=== PATIENT | male | born 1950 | race Caucasian/White ===

== ENCOUNTER → 2016-07-20 | Outpatient (CLI) | payer OTHER ==
[~2016-07-20] MED LIST: ALBU0.08 INH; ALBU0.633 NEB; ALBUAER2 INH; BUPR-79 PO; FLM4 PO; MOME200A INH; ROPI0.5T15 PO; SERT-234 PO; SERT100T PO; TAMS0.4C38 PO; UMEC1AER INH; VNTHFA/IN INH
--- NOTE | 2016-07-20 15:28 | DIAGNOSTIC IMAGING REPORT ---
CHEST 2 VIEWS ROUTINE CLINICAL HISTORY: ASTHMA WITH ACUTE EXACERBATION, DYSPNEA WITH EXACERBATION COMPARISON STUDY: 04/20/2013 FINDINGS: The cardiac and mediastinal contours are normal. There is no evidence of focal pulmonary consolidation. There is no evidence of failure. No pleural effusions are visualized.[ IMPRESSION: No active disease in the chest. Electronically signed by: Griffin Jara M.D. 07/20/2016 3:27 PM Dictated Date/Time: 07/20/2016 3:27 PM
== END | disposition home or self-care (01) ==
LOC: C.LABPVFM 15:03
PROVIDERS: ATTEND Nurse Practitioner
DX: J45.901 Unspecified asthma with (acute) exacerbation (principal); R06.09 Other forms of dyspnea

== ENCOUNTER → 2016-08-20 | Outpatient (CLI) | payer OTHER ==
[~2016-08-20] VITALS: Ht 170.2 cm; Wt 80.2 kg
[2016-08-20 14:05] VITALS: BP 131/87; PULSE 71; Ht 170.2 cm; Wt 80.2 kg
[2016-08-20 14:06] VITALS: BP 134/45; PULSE 83
== END | disposition home or self-care (01) ==
LOC: C.NEUR 13:33
PROVIDERS: ATTEND Internal Medicine Pulmonary Disease
DX: G47.33 Obstructive sleep apnea (adult) (pediatric) (principal); G25.81 Restless legs syndrome

== ENCOUNTER → 2016-09-12 | Outpatient (CLI) | payer OTHER ==
[2016-09-12 18:16] LABS: ALB/GLOB RATIO 0.9 (0.9-2); ALKALINE PHOSPHATASE 107 U/L (45-117); ALT/SGPT 21 U/L (12-78); AST/SGOT 15 U/L (15-37); BLOOD UREA NITROGEN 15 mg/dl (7-18); BUN/CREATININE RATIO 12.4 (10-20); CALCIUM 9.1 mg/dl (8.5-10.1); CARBON DIOXIDE 28 mmol/L (21-32); CHLORIDE 107 mmol/L (98-107); CHOLESTEROL 193 mg/dl (0-200); CHOLESTEROL/HDL RATIO 2.9; GLUCOSE 92 mg/dl (70-99); HDL CHOLESTEROL 66 mg/dl; LDL CHOLESTEROL CALCULATED 107 mg/dl; POTASSIUM 4.3 mmol/L (3.5-5.1); SODIUM 142 mmol/L (136-145); TRIGLYCERIDES 101 mg/dl (0-150); VERY LOW DENSITY LIPOPROT CALC 20 mg/dl
== END | disposition home or self-care (01) ==
LOC: C.LABPVFM 11:21
PROVIDERS: ATTEND Family Medicine
DX: N40.1 Benign prostatic hyperplasia with lower urinary tract symptoms (principal); N13.8 Other obstructive and reflux uropathy; J45.909 Unspecified asthma, uncomplicated; F32.9 Major depressive disorder, single episode, unspecified; Z13.220 Encounter for screening for lipoid disorders; G25.81 Restless legs syndrome; T14.8 Other injury of unspecified body region; W57.XXXA Bitten or stung by nonvenomous insect and other nonvenomous arthropods, initial encounter

== ENCOUNTER → 2016-09-12 | Outpatient (CLI) | payer OTHER ==
[2016-09-12 21:12] LABS: LYME DISEASE AB IGG NEG (NEG); LYME DISEASE AB IGM NEG (NEG)
== END | disposition home or self-care (01) ==
LOC: C.LABPVFM 16:16
PROVIDERS: ATTEND Family Medicine
DX: T14.8 Other injury of unspecified body region (principal); W57.XXXA Bitten or stung by nonvenomous insect and other nonvenomous arthropods, initial encounter

== ENCOUNTER → 2016-11-22 | Outpatient (CLI) | payer OTHER ==
--- NOTE | 2016-11-22 14:51 | EXERCISE STRESS TEST ---
TREADMILL EXERCISE STRESS REPORT REFERRING PROVIDER: FELICE Mistry. INTERPRETING PHYSICIAN: Júnior Crain M.D. PROCEDURE: Treadmill exercise stress test. CLINICAL INDICATIONS: Exertional fatigue and dyspnea. PROTOCOL: The patient exercised a total of 5 minutes and 1 second on the treadmill utilizing the standard Titi protocol. The resting heart rate was 69 beats per minute. Maximum heart rate following exercise was 146 beats per minute. This was 95% of maximum predicted heart rate. The resting blood pressure was 145/88 mmHg. The maximum blood pressure following exercise was 196/89 mmHg. The maximum workload attained was 7.00 METS. Exercise terminated because of dyspnea and leg fatigue. No complaints of chest pain during or following exercise. RESTING ELECTROCARDIOGRAM: Normal sinus rhythm, right side conduction delay, normal ST segments and T-waves. POST-EXERCISE ELECTROCARDIOGRAM: Sinus tachycardia, 0.5-[address] depressions in the inferior lateral leads. ARRHYTHMIAS: Rare premature ventricular beats in the recovery phase. CONCLUSIONS: 1. Maximum exercise stress test negative for chest pain. 2. Normal ECG response to exercise. 3. Hypertensive blood pressure response to exercise. 4. No significant exercise induced arrhythmias.
== END | disposition home or self-care (01) ==
LOC: C.CPL 08:32
PROVIDERS: ATTEND Nurse Practitioner
DX: R06.89 Other abnormalities of breathing (principal); I10 Essential (primary) hypertension

== ENCOUNTER → 2017-02-18 | Outpatient (CLI) | payer OTHER ==
[~2017-02-18] VITALS: Ht 167.6 cm; Wt 77.4 kg
[2017-02-18 13:08] VITALS: BP 135/81; PULSE 77; Ht 167.6 cm; Wt 77.4 kg
== END | disposition home or self-care (01) ==
LOC: C.NEUR 12:20
PROVIDERS: ATTEND Physician Assistant
DX: G47.33 Obstructive sleep apnea (adult) (pediatric) (principal); G25.81 Restless legs syndrome; R06.09 Other forms of dyspnea; F41.9 Anxiety disorder, unspecified; Z87.891 Personal history of nicotine dependence

== ENCOUNTER → 2017-03-13 | Day surgery (SDC) | payer OTHER ==
[2017-02-26 13:05] VITALS: BMI 26.0
[~2017-03-13] VITALS: Ht 170.2 cm; Wt 77.3 kg
[~2017-03-13] MED LIST changes: -ALBU0.08 INH; -ALBUAER2 INH; +LIDOCAINE HCL 2% 2 ML VIAL (20MG/ML) ONE; +PROPOFOL IV EMULSION 10 MG/ML 20 ML VIAL IV ONE; -SERT100T PO; +SODIUM CHLORIDE 0.9% 500ML 500 ML IV ONE; -TAMS0.4C38 PO; -UMEC1AER INH
[2017-03-13 13:41] VITALS: Ht 170.2 cm; Wt 77.3 kg
--- NOTE | 2017-03-13 14:13 | Endo History and Physical ---
History & Physical Date of Service: Mar 13, 2017. Chief Complaint: 5yr F/UP from colon polyps Referring Physician: Dr. Kilgore History of Present Illness 66 yo CM who presents for colonoscopy secondary to colon polyps. Past Surgical History Hx Cardiac Surgery: No Hx Internal Defibrillator: No Hx Pacemaker: No Hx Abdominal Surgery: Yes (ANTHONY) Hx of Implantable Prosthesis: No Hx Post-Op Nausea and Vomiting: No Hx Cancer Surgery: No Hx Thoracic Surgery: No Hx Orthopedic: No Hx Urinary Tract Surgery: No Family History Colon CA Social History Smoking Status: Former Smoker Hx Substance Use: No Hx Alcohol Use: No Allergies Coded Allergies: No Known Allergies (Unverified , 03/13/17) Current Medications Reported Home Medications Medications Dose Route/Sig Max Daily Dose Days Date Category Dulera 200/5 Mcg (Mometasone Furoate-Formoterol) 1 Aer Aer 1 Aer INH BID 02/26/17 Reported Albuterol Sulfate 0.63 Mg/3 Ml Neb 1 Vial NEB QID PRN 25 02/26/17 Reported Ventolin Hfa (Albuterol) 200 Puffs/41386 Mcg Aers 2-4 Puffs INH Q6H PRN 02/26/17 Reported Wellbutrin Sr (Bupropion HCl) 150 Mg Ertab 150 Mg PO QPM 02/26/17 Reported Requip (Ropinirole HCl) 0.5 Mg Tab 0.5 Mg PO HS 02/26/17 Reported Tamsulosin HCl 0.4 Mg Cap 1 Cap PO QAM 02/26/17 Reported Zoloft (Sertraline HCl) 100 Mg Tab 100 Mg PO QAM 02/26/17 Reported Vital Signs Weight (Kilograms): 77.27 Height (Feet): 5 Height (Inches): 7 Date Time Temp Pulse Resp B/P (MAP) Pulse Ox O2 Delivery O2 Flow Rate FiO2 03/13/17 13:48 36.6 76 20 161/94 (116) 95 Room Air Physical Exam General Appearance: WD/WN, no apparent distress Respiratory/Chest: Auscultation: breath sounds normal Cardiovascular: Heart Auscultation: RRR Abdomen: Bowel Sounds: normal Inspection & Palpation: soft, non-distended, no tenderness, guarding & rebound Assessment and Plan Assessment: 66 yo CM who presents for colonoscopy secondary to colon polyps. Plan: Proceed with colonoscopy.
--- NOTE | 2017-03-13 15:11 | GI REPORT ---
Procedure Date: 03/13/2017 2:22 PM Procedure: Colonoscopy Indications: High risk colon cancer surveillance: Personal history of colonic polyps Medicines: Monitored Anesthesia Care Complications: No immediate complications. Estimated Blood Loss: Estimated blood loss: none. Procedure: Pre-Anesthesia Assessment: - Prior to the procedure, a History and Physical was performed, and patient medications and allergies were reviewed. The patient's tolerance of previous anesthesia was also reviewed. The risks and benefits of the procedure and the sedation options and risks were discussed with the patient. All questions were answered, and informed consent was obtained. Prior Anticoagulants: The patient has taken no previous anticoagulant or antiplatelet agents. ASA Grade Assessment: II - A patient with mild systemic disease. After reviewing the risks and benefits, the patient was deemed in satisfactory condition to undergo the procedure. After I obtained informed consent, the scope was passed under direct vision. Throughout the procedure, the patient's blood pressure, pulse, and oxygen saturations were monitored continuously. The scope was introduced through the anus and advanced to the terminal ileum. The colonoscopy was performed without difficulty. The patient tolerated the procedure well. The quality of the bowel preparation was good. The terminal ileum, ileocecal valve, appendiceal orifice, and rectum were photographed. Findings: Three sessile polyps were found in the rectum, in the transverse colon and in the ascending colon. The polyps were 3 to 6 mm in size. These polyps were removed with a hot snare. Resection and retrieval were complete. Multiple small-mouthed diverticula were found in the sigmoid colon. Non-bleeding internal hemorrhoids were found during retroflexion. The hemorrhoids were small. Impression: - Three 3 to 6 mm polyps in the rectum, in the transverse colon and in the ascending colon, removed with a hot snare. Resected and retrieved. - Diverticulosis in the sigmoid colon. - Non-bleeding internal hemorrhoids. Recommendation: - Resume previous diet. - Continue present medications. - Repeat colonoscopy for surveillance based on pathology results. - Return to primary care physician as previously scheduled. Austin Smiley DO 03/13/2017 3:10:53 PM This report has been signed electronically. Note Initiated On: 03/13/2017 2:22 PM I attest to the content of the Intraoperative Record and orders documented therein, exceptions below
--- NOTE | 2017-03-13 15:12 | Discharge Instructions ---
Endoscopy Patient Instructions Date / Procedure(s) Performed Mar 13, 2017. Colonoscopy Allergy Information Coded Allergies: No Known Allergies (Unverified , 03/13/17) Discharge Date / Findings Mar 13, 2017. Colon polyps Diverticulosis Internal hemorrhoids Medication Instructions OK to resume all medications today as prescribed Reported Home Medications Medications Dose Route/Sig Max Daily Dose Days Date Category Dulera 200/5 Mcg (Mometasone Furoate-Formoterol) 1 Aer Aer 1 Aer INH BID 02/26/17 Reported Albuterol Sulfate 0.63 Mg/3 Ml Neb 1 Vial NEB QID PRN 25 02/26/17 Reported Ventolin Hfa (Albuterol) 200 Puffs/70361 Mcg Aers 2-4 Puffs INH Q6H PRN 02/26/17 Reported Wellbutrin Sr (Bupropion HCl) 150 Mg Ertab 150 Mg PO QPM 02/26/17 Reported Requip (Ropinirole HCl) 0.5 Mg Tab 0.5 Mg PO HS 02/26/17 Reported Tamsulosin HCl 0.4 Mg Cap 1 Cap PO QAM 02/26/17 Reported Zoloft (Sertraline HCl) 100 Mg Tab 100 Mg PO QAM 02/26/17 Reported Provider Instructions Activity Restrictions - No exercising or heavy lifting for 24 hours. - Do not drink alcohol the day of the procedure. - Do not drive a car or operate machinery until the day after the procedure. - Do not make any important decisions or sign important papers in 24 hours after the procedure. Following Day: - Return to full activity which may include returning to work/school. Diet Start your diet with liquids and light foods (jello, soup, juice, toast). Then eat your usual diet if not nauseated. Treatment For Common After Affects For mild abdominal pain, bloating, or excessive gas: - Rest - Eat lightly - Lie on right side Follow-Up Information Follow-up with Dr. Kilgore as scheduled Anesthesia Information What You Should Know You have had a procedure that required some medicine to reduce anxiety and discomfort. This treatment is called moderate sedation. After receiving the treatment, you may be sleepy, but you will be able to breathe on your own. The effects of the treatment may last for several hours. Follow these instructions along with Activity/Diet recommendations noted above: * Do NOT do anything where dizziness or clumsiness would be dangerous. * Rest quietly at home today, then you can be up and about tomorrow. * Have a responsible person stay with you the rest of today. * You may have had an I.V. today. If so, you may take the dressing off later today. Recommendations Call your doctor if: * Trouble breathing * Continuous vomiting for more than 24 hours * Temperature above 101 degrees * Severe abdominal pain or bloating * Pain not relieved by pain medicine ordered * There is increased drainage or redness from any incision * A large amount of rectal bleeding greater than 2-3 tablespoons. (If you had a polyp/s removed or have hemorrhoids, a small amount of blood - from the rectum is to be expected.) * You have any unanswered questions or concerns. IN THE EVENT OF A SERIOUS EMERGENCY, GO TO THE NEAREST EMERGENCY ROOM Your discharge instructions were prepared by provider Austin Smiley. Patient Instructions Signature Page Rl Burdener Patient (or Guardian) Signature/Date: I have read and understand the instructions given to me by my caregivers. Caregiver/RN/Doctor Signature/Date: The above-named patient and/or guardian has received patient instructions on this date. + Original Patient Signature Page (only) stays with chart. Please make copy for patient.
--- NOTE | 2017-03-13 15:37 | Anesthesiology Progress Note ---
Anesthesia Post Op Note Date & Time Mar 13, 2017 at 15:36 Vital Signs Pain Intensity: 0 Vital Signs Past 12 Hours Date Time Temp Pulse Resp B/P (MAP) Pulse Ox O2 Delivery O2 Flow Rate FiO2 03/13/17 15:25 71 20 112/69 (83) 93 Room Air 03/13/17 15:10 96 20 97/66 (76) 93 Room Air 03/13/17 13:48 36.6 76 20 161/94 (116) 95 Room Air Notes Mental Status: alert / awake / arousable, participated in evaluation Pt Amnestic to Procedure: Yes Nausea / Vomiting: adequately controlled Pain: adequately controlled Airway Patency, RR, SpO2: stable & adequate BP & HR: stable & adequate Hydration State: stable & adequate Anesthetic Complications: no major complications apparent
[2017-03-13 15:40] VITALS: BP 121/71; PULSE 64; O2SAT 94
== END | disposition home or self-care (01) ==
LOC: C.GI 13:11
PROVIDERS: ATTEND Internal Medicine
DX: Z12.11 Encounter for screening for malignant neoplasm of colon (principal); D12.8 Benign neoplasm of rectum; D12.3 Benign neoplasm of transverse colon; D12.2 Benign neoplasm of ascending colon; Z86.010 Personal history of colon polyps; Z87.891 Personal history of nicotine dependence; K57.30 Diverticulosis of large intestine without perforation or abscess without bleeding; K64.8 Other hemorrhoids

== ENCOUNTER → 2017-05-06 | Outpatient (CLI) | payer OTHER ==
[~2017-05-06] MED LIST changes: -LIDOCAINE HCL 2% 2 ML VIAL (20MG/ML) ONE; -PROPOFOL IV EMULSION 10 MG/ML 20 ML VIAL IV ONE; -SODIUM CHLORIDE 0.9% 500ML 500 ML IV ONE
[2017-05-06 17:56] LABS: BLOOD UREA NITROGEN 17 mg/dl (7-18); BUN/CREATININE RATIO 13.5 (10-20); CALCIUM 8.9 mg/dl (8.5-10.1); CARBON DIOXIDE 27 mmol/L (21-32); CHLORIDE 106 mmol/L (98-107); CREATININE 1.22 mg/dl (0.60-1.40); GLUCOSE 104 mg/dl (70-99); POTASSIUM 3.8 mmol/L (3.5-5.1); SODIUM 141 mmol/L (136-145)
== END | disposition home or self-care (01) ==
LOC: C.LABPVFM 13:43
PROVIDERS: ATTEND Nurse Practitioner
DX: G25.81 Restless legs syndrome (principal); J44.9 Chronic obstructive pulmonary disease, unspecified

== ENCOUNTER → 2017-08-22 | Outpatient (CLI) | payer OTHER ==
[~2017-08-22] VITALS: Ht 167.6 cm; Wt 80.0 kg
[2017-08-22 13:35] VITALS: BP 139/78; PULSE 78; Ht 167.6 cm; Wt 80.0 kg
== END | disposition home or self-care (01) ==
LOC: C.NEUR 13:07
PROVIDERS: ATTEND Physician Assistant
DX: G47.33 Obstructive sleep apnea (adult) (pediatric) (principal); G25.81 Restless legs syndrome

== ENCOUNTER → 2017-11-04 | Outpatient (CLI) | payer OTHER ==
[2017-11-04 18:13] LABS: BLOOD UREA NITROGEN 15 mg/dl (7-18); CALCIUM 8.9 mg/dl (8.5-10.1); CARBON DIOXIDE 27 mmol/L (21-32); CREATININE 1.09 mg/dl (0.60-1.40); GLUCOSE 81 mg/dl (70-99); POTASSIUM 4.3 mmol/L (3.5-5.1); SODIUM 137 mmol/L (136-145)
[2017-11-04 18:17] LABS: CHOLESTEROL 183 mg/dl (0-200); LDL CHOLESTEROL CALCULATED 91 mg/dl
== END | disposition home or self-care (01) ==
LOC: C.LABPVFM 13:33
PROVIDERS: ATTEND Nurse Practitioner
DX: G25.81 Restless legs syndrome (principal); G47.33 Obstructive sleep apnea (adult) (pediatric); Z13.220 Encounter for screening for lipoid disorders

== ENCOUNTER 2021-11-17 05:33 | Observation (INO) ==
--- NOTE | 2021-10-12 16:40 | PAT Medication Instructions ---
Medication Instructions Date of Service October 12, 2021 Home Medications Medication Instructions Recorded tamsulosin 0.4 mg capsule 0.4 mg PO DAILY #90 cap 12/30/18 bupropion HCl 150 mg tablet,12 hr 150 mg PO DAILY #90 ea 10/24/20 sustained-release sertraline 100 mg tablet (Zoloft) 100 mg PO DAILY #90 tab 11/15/20 fluticasone propionate 50 1 spray INTRANASAL BID #18.2 gm 12/08/20 mcg/actuation nasal spray,suspension ropinirole 0.5 mg tablet 0.5 mg PO .COMPLEX #90 tab 02/01/21 mometasone-formoterol HFA 200 1 inh INHALATION BID #26 gm 08/14/21 mcg-5 mcg/actuation aerosol inhaler albuterol sulfate 90 mcg/actuation aerosol inhaler 1 - 2 puff INHALATION UD PRN albuterol sulfate 2.5 mg INHALATION Q4H PRN tamsulosin 0.4 mg capsule 0.4 mg PO DAILY bupropion HCl 150 mg tablet,12 hr sustained-release 150 mg PO DAILY sertraline 100 mg tablet (Zoloft) 100 mg PO DAILY fluticasone propionate 50 mcg/actuation nasal spray,suspension 1 spray INTRANASAL BID ropinirole 0.5 mg tablet 0.5 mg PO .COMPLEX mometasone-formoterol HFA 200 mcg-5 mcg/actuation aerosol inhaler 1 inh INHALATION BID ibuprofen 200 mg tablet (Advil) 400 mg PO Q6H PRN omeprazole 20 mg capsule,delayed release 20 mg PO QAM Continue as directed tamsulosin 0.4 mg capsule 0.4 mg PO DAILY bupropion HCl 150 mg tablet,12 hr sustained-release 150 mg PO DAILY sertraline 100 mg tablet (Zoloft) 100 mg PO DAILY ASK your surgeon for instructions ibuprofen 200 mg tablet (Advil) 400 mg PO Q6H PRN Take morning of surgery With a small sip of water, OTHERWISE NOTHING TO EAT OR DRINK AFTER MIDNIGHT: albuterol sulfate 90 mcg/actuation aerosol inhaler 1 - 2 puff INHALATION UD PRN (use if needed; please bring with you to hospital day of surgery if possible) albuterol sulfate 2.5 mg INHALATION Q4H PRN(use if needed; please bring with you to hospital day of surgery if possible) mometasone-formoterol HFA 200 mcg-5 mcg/actuation aerosol inhaler 1 inh INHALATION BID fluticasone propionate 50 mcg/actuation nasal spray,suspension 1 spray INTRANASAL BID omeprazole 20 mg capsule,delayed release 20 mg PO QAM Take evening before surgery albuterol sulfate 90 mcg/actuation aerosol inhaler 1 - 2 puff INHALATION UD PRN (if needed) albuterol sulfate 2.5 mg INHALATION Q4H PRN(if needed) ropinirole 0.5 mg tablet 0.5 mg PO .COMPLEX mometasone-formoterol HFA 200 mcg-5 mcg/actuation aerosol inhaler 1 inh INHALATION BID fluticasone propionate 50 mcg/actuation nasal spray,suspension 1 spray INTRANASAL BID Other Notes If you have any questions please call us at [phone] or [phone] or [phone] or [phone]
--- NOTE | 2021-10-16 13:08 | Anesthesiology Consultation ---
Date of Service October 16, 2021 Assessment & Plan (1) Encounter for pre-operative examination: Chart Review Chart Review: Acceptable Risk for Surgery (pending preop Covid test results) and Patient seen in Pre Admission Testing Per PAT appt on 10/16/21, patient denies any recent travel or large group activities. No known Covid positive exposures or Covid related symptoms. No known Covid infection in the past 90 days. Pt is NOT vaccinated for covid.. Preop Covid testing scheduled 11/15/21= will await results. Educated on importance of self quarantining, social distancing and wearing mask in public for the patient one week prior to surgery and after Covid testing done Teaching & Discussion Pre-Anesthesia Teaching/Discussion Notes: Instructed NPO after midnight before surgery,except medications with 15 cc of water. Medication instructions provided according to the [facility] guidelines. History Surgery Operation Date: 11/17/21 10:15 Proposed Procedures p Left Reverse Total Shoulder Arthroplasty - Beau Renteria, Height/Weight Height: 5 ft 7 in Weight: 81.9 kg Allergies Allergy/AdvReac Type Severity Reaction Status Date / Time No Known Allergies Allergy Unverified 10/12/21 11:58 Medications Home Medications Medication Instructions Recorded Confirmed Last Taken albuterol sulfate 90 mcg/actuation 1 - 2 puff INHALATION UD PRN #1 gm 12/15/18 10/12/21 Unknown aerosol inhaler albuterol sulfate 2.5 mg INHALATION Q4H PRN #1 ml 12/30/18 10/12/21 Unknown tamsulosin 0.4 mg capsule 0.4 mg PO DAILY #90 cap 12/30/18 10/12/21 Unknown bupropion HCl 150 mg tablet,12 hr 150 mg PO DAILY #90 ea 10/24/20 10/12/21 Unknown sustained-release sertraline 100 mg tablet (Zoloft) 100 mg PO DAILY #90 tab 11/15/20 10/12/21 Unknown fluticasone propionate 50 1 spray INTRANASAL BID #18.2 gm 12/08/20 10/12/21 Unknown mcg/actuation nasal spray,suspension ropinirole 0.5 mg tablet 0.5 mg PO .COMPLEX #90 tab 02/01/21 10/12/21 Unknown mometasone-formoterol HFA 200 1 inh INHALATION BID #26 gm 08/14/21 10/12/21 Unknown mcg-5 mcg/actuation aerosol inhaler ibuprofen 200 mg tablet (Advil) 400 mg PO Q6H PRN 10/12/21 10/12/21 Unknown omeprazole 20 mg capsule,delayed 20 mg PO QAM 10/12/21 10/12/21 Unknown release Past Medical History Medical History Allergic rhinitis Anxiety and depression Asthma HAS NOT USED RESCUE INHALER FOR A WHILE Breathing stable BPH (benign prostatic hyperplasia) COPD, mild Breathing stable Obstructive sleep apnea CPAP Restless legs syndrome Stable with med Exercise / Class Metabolic Activity II 4-5 Yardwork/Stairs/Walk up hill (one flight of stairs - no chest pain or SOB ) Past Family History Family History Brother Prostate cancer Family hx of colon cancer Father Myocardial infarction Other No family history of adverse response to anesthesia Denies family history of Ovarian cancer Breast cancer Colorectal cancer Past Surgical History Surgical History H/O colonoscopy with polypectomy H/O shoulder surgery LEFT History of cholecystectomy History of tooth extraction Past Anesthesia History No Hx of Anesthesia Complications and No Family Hx of Anesthesia Complications History of PONV No Hx of PONV and No Hx of Motion Sickness Social History Smoking Status: Former smoker tobacco type: cigarettes and smokeless tobacco Do You Dip or Chew Tobacco: Yes (WILL USE OCCAS. *ADVISED) Smoking End Date: 1975 Hx Alcohol Use: No Hx Substance Use: No substance use type: does not use Review of Systems Occ reflux - feels secondary to NSAID use- improved with meds from PCP Occ snoring- no witnessed apnea- no hx of sleep study Patient denies chest pain, shortness of breath, dyspnea on exertion,, cough, wheezing, palpitations. No hx of seizures, stroke, CT, apnea/snoring. No hx of blood clots or blood transfusions Physical Exam Vital Signs VITALS BP 145/84 P 66 TEMP 97.8 SP02 96% RESP 16 Constitutional no acute distress ENMT Mouth: no TMJ clicking Thyromental Distance: > or= 3.5 Finger Breadths (3.5) Mallampati Class: II Full dentures on top and bottom Neck + limited neck extension Respiratory normal respiratory effort; no respiratory distress Auscultation: lungs clear to auscultation bilaterally; no wheezes Cardiovascular Rate/Rhythm: regular rate and regular rhythm Heart Sounds: no murmur Vessels: no carotid bruit Musculoskeletal Spine: no pain with cervical ROM Extremities: extremities normal to inspection Psychiatric Orientation: alert Lab Results Anesthesia Preop Results Results Anesthesia Widget: WBC 5.54 K/uL (4.8-10.8) 10/16/21 Hgb 15.4 g/dL (14.0-18.0) 10/16/21 Hct 47.4 % (42-52) 10/16/21 Plt 306 K/uL (130-400) 10/16/21 Na 141 mmol/L (136-145) 10/16/21 K 4.3 mmol/L (3.5-5.1) 10/16/21 Cl 105 mmol/L (98-107) 10/16/21 CO2 28 mmol/L (21-32) 10/16/21 BUN 17 mg/dl (6-23) 10/16/21 Creat 1.12 mg/dl (0.6-1.4) 10/16/21 Glucose Level 85 mg/dl (70-99(Fasting)) 10/16/21 PT 10.8 Seconds (9.0-12.0) 10/16/21 PTT 30.0 Seconds (21.0-31.0) 10/16/21 INR 1.0 (0.9-1.1) 10/16/21 Blood Type O Positive 10/16/21 Antibody Screen NEGATIVE 10/16/21 Testing Electrocardiogram Date: 10/16/21 Findings: + NSR @ (64bpm) Normal EKG per cardio Chest X-Ray Date: 10/16/21 Findings: + NAD FINDINGS: PA and lateral chest radiographs are compared to study dated 04/20/2013. The cardiomediastinal silhouette is top normal for projection. There is atherosclerotic calcification of the thoracic aorta There is bibasilar scarring/atelectasis. No airspace consolidation or large pleural effusion is identified. There is no pneumothorax. The skeletal structures are osteopenic. The bony thorax appears intact. Cholecystectomy clips are noted in the right upper quadrant.
--- NOTE | 2021-11-16 12:06 | History & Physical Report ---
Date of Service November 16, 2021 Assessment & Plan (1) Complete rotator cuff tear of left shoulder: We will proceed with a left reverse shoulder arthroplasty. Postoperatively he will be placed in a sling and kept overnight for postoperative medical management. He plans to use [facility] upon discharge. History of Present Illness Chief Complaint: Chronic retracted rotator cuff tear left shoulder Primary Care Provider: FELICE Marr Rl is a pleasant 71-year-old male who was coming off of a ladder about 6 months ago when he slipped and fell. He has been having left shoulder pain and pseudoparalysis since. MRI of the shoulder shows a large retracted rotator cuff tear with significant atrophy. After failing conservative treatment, he has elected to proceed with a left reverse shoulder arthroplasty. . Allergies Allergy/AdvReac Type Severity Reaction Status Date / Time No Known Allergies Allergy Unverified 10/12/21 11:58 Home Medications Medication Instructions Recorded Confirmed Type albuterol sulfate 90 mcg/actuation 1 - 2 puff INHALATION UD PRN #1 gm 12/15/18 10/12/21 History aerosol inhaler albuterol sulfate 2.5 mg INHALATION Q4H PRN #1 ml 12/30/18 10/12/21 History tamsulosin 0.4 mg capsule 0.4 mg PO DAILY #90 cap 12/30/18 10/12/21 Rx bupropion HCl 150 mg tablet,12 hr 150 mg PO DAILY #90 ea 10/24/20 10/12/21 Rx sustained-release sertraline 100 mg tablet (Zoloft) 100 mg PO DAILY #90 tab 11/15/20 10/12/21 Rx fluticasone propionate 50 1 spray INTRANASAL BID #18.2 gm 12/08/20 10/12/21 Rx mcg/actuation nasal spray,suspension ropinirole 0.5 mg tablet 0.5 mg PO .COMPLEX #90 tab 02/01/21 10/12/21 Rx mometasone-formoterol HFA 200 1 inh INHALATION BID #26 gm 08/14/21 10/12/21 Rx mcg-5 mcg/actuation aerosol inhaler ibuprofen 200 mg tablet (Advil) 400 mg PO Q6H PRN 10/12/21 10/12/21 History omeprazole 20 mg capsule,delayed 20 mg PO QAM 10/12/21 10/12/21 History release Past Med/Surg History Medical History Allergic rhinitis Anxiety and depression Asthma HAS NOT USED RESCUE INHALER FOR A WHILE Breathing stable BPH (benign prostatic hyperplasia) COPD, mild Breathing stable Obstructive sleep apnea CPAP Restless legs syndrome Stable with med Surgical History H/O colonoscopy with polypectomy H/O shoulder surgery LEFT History of cholecystectomy History of tooth extraction Family History Brother Prostate cancer Family hx of colon cancer Father Myocardial infarction Other No family history of adverse response to anesthesia Denies family history of Ovarian cancer Breast cancer Colorectal cancer Social History Smoking Status: Former smoker Second Hand Exposure: Yes (IN THE PAST); Hx Alcohol Use: No Hx Substance Use: No Preferred Language: Greek Communication Ability: Effective Visual Impairment: No Limitations Hearing Ability: Normal Wallpaper Cleaner Required: No Beliefs That Will Affect Care: None marital status: Current Living Situation: Spouse current occupational status: retired Feels Safe at Home: Yes Childhood Exposure to Second-Hand Smoke: No caffeine: Yes Dental Care, Regularly: No Seatbelt Use: always Sunscreen Use: No Assistive Devices: CPAP, Denture - Upper, Denture - Lower, Glasses and Nebulizer Review of Systems All systems reviewed & are unremarkable except as noted in HPI & below. Physical Exam On physical examination of the left shoulder, he has about 40 degrees of forward elevation and 40 degrees of abduction. He has 3 out of 5 motor strength throughout. He is neurovascular intact. Constitutional WD/WN, vitals as above Eyes PERRL, conjunctivae normal, anicteric sclerae ENMT external ear and nose normal, oropharynx normal Neck trachea midline, no thyromegaly Respiratory normal respiratory effort Cardiovascular RRR, no murmur, no edema Gastrointestinal (Abdomen) normal bowel sounds, soft, nontender, no hepatosplenomegaly Psychiatric A+Ox3, euthymic affect Results & Data Results & Data Laboratory Results . Diagnostic Findings X-rays of the left shoulder show mild arthritis but the humeral head is superior within the glenoid. MRI of the left shoulder shows a large chronic retracted rotator cuff tear. PG Care Time/CCT Total # of Minutes Spent Total Time Spent with Patient: Total time spent is greater than 50% in coordination of care (as documented) at patient's floor/unit and/or counseling patient: Coding Level of Care Code None Diagnoses Complete rotator cuff tear of left shoulder M75.122
[2021-11-17] MEDS ORDERED: LACTATED RINGER'S 1,000 ML IV SCH (06:00)
[2021-11-17] MEDS ORDERED: ceFAZolin 2000MG 2,000 MG/15 ML SYR IV SCH (06:00)
[2021-11-17] MEDS ORDERED: Ketorolac (*for OR use only*) 30 MG, dexAMETHasone 4 MG, KETAMINE HCL (**OR use only) 1... INFIL SCH (06:00)
[2021-11-17] MEDS ORDERED: LR 60ML/HR IV SCH (06:00)
[2021-11-17] MEDS ORDERED: TRANEXAMIC ACID 1,000 MG **IV Pre-op IV SCH (06:00)
[2021-11-17] MEDS ORDERED: ACETAMINOPHEN 500 MG TAB PO SCH (06:00)
[2021-11-17] MEDS ORDERED: dexAMETHasone 4 MG TAB PO SCH (06:00)
[2021-11-17] MEDS ORDERED: GABAPENTIN 300 MG CAP PO SCH (06:00)
[2021-11-17] MEDS ORDERED: FAMOTIDINE 20 MG TAB PO SCH (06:00)
[2021-11-17] MEDS ORDERED: TRANEXAMIC ACID 1,000 MG **IV Intra-op IV SCH (06:00)
[2021-11-17] MEDS ORDERED: BUPIVACAINE 0.5 % 5 MG/1 ML PF 10ML VIAL ONE (06:24)
--- NOTE | 2021-11-17 06:39 | History & Physical Bridge Note ---
Date of Service November 17, 2021 History & Physical Bridge Note I have examined the patient, reviewed the History & Physical and in the interval since the performance of the History & Physical I have noted the following changes of clinical significance: no changes noted
[2021-11-17] MEDS ORDERED: MIDAZOLAM HCL 1 MG/ML 2ML VIAL ONE (07:05)
[2021-11-17] MEDS ORDERED: PROPOFOL IV EMULSION 10 MG/ML 20 ML VIAL IV ONE (07:05)
[2021-11-17] MEDS ORDERED: DEXAMETHASONE SOD INJ 4 MG/ML VIAL ONE (07:05)
[2021-11-17] MEDS ORDERED: ONDANSETRON INJ 2 MG/ML 2 ML VIAL ONE (07:05)
[2021-11-17] MEDS ORDERED: LIDOCAINE 2% 2 ML VIAL/AMP(20MG/ML) INFIL ONE (07:05)
[2021-11-17] MEDS ORDERED: fentaNYL citrate 100 MCG/2 ML VIAL ONE (07:06)
[2021-11-17] MEDS ORDERED: ROCURONIUM BROMIDE 10 MG/ML 5 ML VIAL IV ONE ×5 (07:06→07:07)
[2021-11-17] MEDS ORDERED: ORTHO JOINT ANESTHETIC ONE (07:35)
[2021-11-17] MEDS ORDERED: fentaNYL citrate 100 MCG/2 ML VIAL IV PRN (07:40)
[2021-11-17] MEDS ORDERED: ATROPINE SULFATE 0.1 MG/ML 10ML SYR IV PRN (07:40)
[2021-11-17] MEDS ORDERED: LABETALOL HCL IV 5 MG/ML 20ML IV PRN (07:40)
[2021-11-17] MEDS ORDERED: KETOROLAC 30 MG/ML VIAL IV PRN (07:40)
[2021-11-17] MEDS ORDERED: ONDANSETRON INJ 2 MG/ML 2 ML VIAL IV PRN ×2 (07:40→10:48)
[2021-11-17] MEDS ORDERED: ePHEDrine sulfate 50 MG/ML SYR ONE (08:30)
--- NOTE | 2021-11-17 09:11 | Operative Report ---
PG Post Operative Report Pre & Post Diagnosis Operation Date: 11/17/21 08:00 Pre-Op Diagnosis: Cuff tear arthropathy of the left shoulder Post-Op Diagnosis: Cuff tear arthropathy of the left shoulder I identified the patient and participated in the time-out.: Yes Procedure Operation Date: 11/17/21 08:00 Actual Procedures p Left Reverse Total Shoulder Arthroplasty(Left) - Beau Renteria DO Surgeon Beau Renteria DO Engineer [employer] Beau Cleary PAC Estimated Blood Loss 250 Findings Consistent with Post-Op Diagnosis Specimens Left humeral head Complications none Disposition Disposition: Recovery Room Indications Uche is a pleasant 71-year-old male who is been dealing with chronic increasing left shoulder pain. MRI and clinical examination were diagnostic for chronic retracted rotator cuff tear of the left shoulder. After failing conservative treatment, he elected to proceed with a left reverse shoulder arthroplasty. Description of Procedure Implants used: I used a [employer]omet Comprehensive reverse total shoulder arthroplasty system with a size 14 press fit micro humeral stem, a +6 offset humeral tray and a standard humeral bearing, a 25 mm small augment baseplate with a 6.5 mm central screw and superior and inferior locking screws, and a size 40 mm eccentric glenosphere. Uche arrived at [facility] for the above procedure. He was seen in the preoperative holding area and the operative extremity was identified and signed. He was given a preoperative antibiotic, TXA, and an interscalene nerve block. He was taken back to the operating room, laid on table in supine position, and put under general anesthesia. He was then put into the beachchair position. The shoulder was then prepped and draped in sterile fashion. A timeout was done and the patient and the operative extremity was properly identified. A deltopectoral approach was used. Dissection was taken down through the fascia and the deltoid was retracted laterally and the conjoined tendon was retracted medially. The anterior shoulder was exposed. The biceps tendon was chronically torn. The subscapularis was then directly released off the lesser tuberosity with a peel technique. The inferior capsule was released and the humeral head was dislocated. A canal finding reamer was sent down the center of the humeral canal. Sequential reaming up to a size 14 reamer was done. Off that reamer, a proximal humeral resection guide was placed. The proximal humerus was resected at 135 of inclination and 25 of retroversion. Osteophytes were then removed and the glenoid was exposed. Time was spent doing a complete capsular and labral release. The glenoid guide was then placed in the inferior aspect of the glenoid. A 3.2 mm Steinmann pin was then placed into the glenoid vault at 10 of inclination. The glenoid baseplate was then reamed. The final size 25 mm small augment baseplate was then impacted in the place. A 6.5 mm central screw was then placed followed by superior and inferior locking screws. A 40 mm eccentric glenosphere was then impacted into place. Surrounding soft tissues were then injected with 100 cc an orthopedic pain control cocktail. The proximal humerus was then exposed. Sequential broaching of the humerus up to a size 14 broach was done. Off that broach a +6 offset humeral tray was trialed. The shoulder was then reduced, brought through a full range of motion, and felt to be stable. The shoulder was then dislocated and the broach was removed. The final size 14 micro press-fit humeral stem was then impacted into place. A standard humeral bearing was then snapped onto a +6 offset humeral tray. The humeral tray was then impacted onto the humeral stem. The shoulder was once again reduced, brought through a full range of motion, and felt to be stable. The subscapularis was retracted and not repairable. A dilute betadyne lavage was then done for 3 minutes. The joint was then irrigated with normal saline solution. Hemostasis was obtained. The interval was closed with 2-0 Vicryl suture. The skin was then closed with 2-0 Vicryl and stalin. A Silverlon dressing was placed and the arm was rested in a regular arm sling. He was then extubated and transferred to a hospital bed. He taken to the postanesthesia care unit in stable condition. He tolerated the procedure well. Beau Cleary PA-C, was present for the entire procedure. He was critical for patient positioning, prepping, draping, retraction exposure, wound closure and application of sterile dressing. I attest to the content of the Intraoperative Record and any orders documented therein. Any exceptions are noted below.
--- NOTE | 2021-11-17 10:09 | XRay Report ---
XR shoulder LT min 2V routine CLINICAL HISTORY: Post shoulder surgery. Status post total shoulder replacement COMPARISON STUDY: No previous studies for comparison. TECHNIQUE: 2 left shoulder views FINDINGS: The patient is status post total shoulder replacement with humeral head and glenoid compone nts. The prosthetic components are in anatomic alignment with no acute abnormality identified. Skin s taples are present from the recent procedure. IMPRESSION: 1. Status post total shoulder replacement. ACT 112: Negative or not required by law. Electronically signed by: Roney Barriga M.D. 11/17/2021 10:08 AM
[2021-11-17] MEDS ORDERED: GLYCOPYRROLATE 0.2 MG/ML VIAL ONE (10:31)
--- NOTE | 2021-11-17 10:32 | Anesthesiology Progress Note ---
Date of Service November 17, 2021 Anesthesia Post Procedure Vital Signs Vital Signs: Temp Pulse Resp BP Pulse Ox 11/17/21 10:05 36.3 C L 82 20 121/81 93 11/17/21 09:55 76 16 109/73 94 11/17/21 09:45 83 15 105/73 95 11/17/21 09:35 72 13 107/75 96 11/17/21 09:28 36.0 C L 69 13 109/73 95 11/17/21 05:59 36.8 C 92 H 18 149/99 H 96 Pain Intensity Left Shoulder: Pain Intensity: 2 Transfer of Care Handoff Completed per policy Notes Mental Status: alert / awake / arousable Patient Amnestic to Procedure: Yes Nausea / Vomiting: adequately controlled Pain: adequately controlled Airway Patency, RR, SpO2: stable & adequate BP & HR: stable & adequate Hydration State: stable & adequate Anesthetic Complications: no major complications apparent
[2021-11-17] MEDS ORDERED: HYDROmorphone INJ 0.5 MG/0.5 ML SYR IV PRN (10:48)
[2021-11-17] MEDS ORDERED: METOCLOPRAMIDE HCL INJ 5 MG/ML 2 ML VIAL IV PRN (10:48)
[2021-11-17] MEDS ORDERED: bisacodyL 10 MG SUPP PR PRN (10:48)
[2021-11-17] MEDS ORDERED: MAGNESIUM HYDROXIDE SUSP 30 ML UDC PO PRN (10:48)
[2021-11-17] MEDS ORDERED: ALBUTEROL 0.083% NEBU SOLN 3 ML VIAL INH PRN (10:48)
[2021-11-17] MEDS ORDERED: NALOXONE HCL 0.4 MG/1 ML VIAL/CARP IV PRN (10:48)
[2021-11-17] MEDS ORDERED: oxyCODONE HCL IR 5 MG TAB (IMMEDIATE RELEASE) PO PRN (10:48)
[2021-11-17] MEDS ORDERED: ALBUTEROL HFA 8 GM INHALER INH PRN (10:48)
[2021-11-17] MEDS: KETOROLAC TROMETHAMINE 15 MG/ML VIAL IV SCH ×3 (12:49→23:26)
[2021-11-17] MEDS: SODIUM CHLORIDE 0.9% 1000ML 1,000 ML IV SCH ×2 (12:49→20:07)
[2021-11-17] MEDS: ACETAMINOPHEN 500 MG TAB PO SCH ×2 (15:18→22:24)
[2021-11-17] MEDS: ceFAZolin 2000MG 2,000 MG/15 ML SYR IV SCH ×2 (17:37→23:26)
[2021-11-17] MEDS ORDERED: rOPINIRole HCL 0.25 MG TABLET PO SCH (20:00)
[2021-11-17] MEDS: FLUTICASONE PROPIONATE NA SPR 16 GM BTL NAE SCH (20:07)
[2021-11-17] MEDS: DOCUSATE SODIUM 100 MG CAP PO SCH (20:07)
[2021-11-17] MEDS ORDERED: SENNA 8.6 MG TAB PO SCH (21:00)
[2021-11-18] MEDS: ACETAMINOPHEN 500 MG TAB PO SCH (06:02)
[2021-11-18] MEDS: KETOROLAC TROMETHAMINE 15 MG/ML VIAL IV SCH (06:02)
--- NOTE | 2021-11-18 06:43 | Orthopedic Progress Note ---
Date of Service November 18, 2021 Assessment & Plan (1) Status post reverse total replacement of left shoulder: Overall is doing fairly well. Is not having much pain in the right shoulder. He will be seen by physical therapy today for ambulation and range of motion exercises. He can be discharged home later today. He will follow-up with orthopedics in 2 weeks. Subjective Uche was seen and examined at bedside this morning. Overall is doing very well. Is not having any pain in the right shoulder. He was able to get some sleep last night. Has no complaints. Review of Systems All systems reviewed & are unremarkable except as noted in HPI & below. Physical Exam On physical examination of the right shoulder, the dressing is clean and dry. He has active motion of his hand and his wrist. He is wearing his sling as instructed. Results & Data Results & Data Laboratory Results . Diagnostic Findings Postoperative x-rays of the right shoulder show the prosthesis to be in anatomic alignment without any evidence of fracture, screws, or loosening.. PG Care Time/CCT Total # of Minutes Spent Total Time Spent with Patient: Total time spent is greater than 50% in coordination of care (as documented) at patient's floor/unit and/or counseling patient: Coding Level of Care Code 78080 Post Operative Follow-Up Diagnoses Status post reverse total replacement of left shoulder Z96.612
--- NOTE | 2021-11-18 06:44 | Discharge Summary ---
Date of Service November 18, 2021 Admission HPI (Per Admitting) Rl is a pleasant 71-year-old male who was coming off of a ladder about 6 months ago when he slipped and fell. He has been having left shoulder pain and pseudoparalysis since. MRI of the shoulder shows a large retracted rotator cuff tear with significant atrophy. After failing conservative treatment, he has elected to proceed with a left reverse shoulder arthroplasty. . Admission Exam (Per Admitting) On physical examination of the left shoulder, he has about 40 degrees of forward elevation and 40 degrees of abduction. He has 3 out of 5 motor strength throughout. He is neurovascular intact. Principal Diagnosis Same as "Discharge Diagnosis" noted below under Discharge Instructions. Discharge Exam On physical examination of the right shoulder, the dressing is clean and dry. He has active motion of his hand and his wrist. He is wearing his sling as instructed. Discharge Data Procedures Performed Operation Date: 11/17/21 08:00 Actual Procedures p Left Reverse Total Shoulder Arthroplasty(Left) - Beau Renteria DO Ordered Studies 11/17/21 05:00 US - OR guided needle placemen Routine Hospital Course (1) Status post reverse total replacement of left shoulder: On November 17, 2021 Uche arrived at [facility] and underwent a right reverse shoulder replacement without complication. He had a general anesthetic and a right interscalene nerve block. Postoperatively he was placed in a sling and transferred to the general orthopedic floors. His hospital course was uneventful. On postop day #1, his vital signs were stable and his pain was well controlled. He was able to participate well with physical therapy doing ambulation and range of motion exercises. He was then discharged home. He will follow-up with orthopedics in 2 weeks. PG Care Time/CCT Total # of Minutes Spent Total Time Spent with Patient: Total time spent is greater than 50% in coordination of care (as documented) at patient's floor/unit and/or counseling patient: Discharge Plan Discharge Items Patient Disposition: Home - Home Health Services Reason For Visit: DJD Left Shoulder, Rotator Cuff Tear Discharge Diagnosis: Left reverse shoulder arthroplasty Activity: Per Instructions section Non-emergency contact: Surgeon Call non-emergency contact if: your wound has increased redness and your wound has increased drainage Follow-up/Referrals: Lyn Adhikari CRNP [Primary Care Provider] - Diet: Regular Addtl Attending Provider Instructions: Activity and Therapy Recommendations: * If you are using [facility] then therapy will be provided at your home until they feel you have accomplished all of your goals. * If you are using [facility] then Physical Therapy will be provided until they feel you are ready to start Outpatient Physical Therapy. * If you are not using home therapy then Outpatient Physical Therapy should start about 3-5 days from your day of surgery. Therapy will last about 8-12 weeks * Wear your sling for 3 weeks, unless otherwise instructed. You may remove your sling to shower and to dress, but otherwise, you should be in your sling at all times, including while sleeping * The shoulder replacement is very stable and you can use your hand while in the sling * You were shown a series of exercises in the hospital. Do these exercises daily including the exercises you were shown in physical therapy. Medications: * Narcotic You will likely be sent home from the hospital with a prescription for the narcotic pain medication that worked best throughout your stay. * Other medications may be prescribed for specific circumstances. If you have any questions, please call the office at . * Resume previous home medications unless otherwise instructed Dressing Care: Leave the Silverlon dressing in place for 7 days. After 7 days you may remove the dressing. If the incision is not draining then you may leave the stalin open to air. If there is a little bit of drainage or if the stalin are getting stuck on your clothing then cover the incision with a dry dressing. The stalin will be removed at your 2 week follow-up appointment. Showering: You may shower with the Silverlon dressing in place. Do not let the shower spray hit the dressing directly. Pat the Silverlon dressing dry. If the dressing becomes wet underneath, then simply remove the dressing. Keep the incision dry until you are 7 days out from the day of surgery. After 7 days you may remove the Silverlon dressing and shower with the stalin exposed. Let soapy water run over the stalin and pat them dry. Do not scrub or soak the incision. Things To Watch For: * Drainage from the incision site that occurs more than one week after your surgery. * Increased redness at the incision site. * Fever above 102 degrees Fahrenheit. * Unusual chest pain or shortness of breath. * Call [facility] at with any of the above problems Follow-Up Visit: Follow-up with Dr. Renteria's PA (Beau Cleary) 2-3 weeks after your day of surgery. He will remove your stalin and answer any questions. If you have any additional questions or concerns, Dr Renteria is usually in the office at the same time and will be available An appointment was probably scheduled when you signed-up for surgery in the office. If you have any questions call More detailed instructions as well as Frequently Asked Questions were provided in a folder by our office when you signed-up for surgery. Please review these instructions when you get home. If you have any further questions or concerns, please feel free to call the office at [phone] Pending Studies at Discharge: No Stand-Alone Forms: My [facility] Medications and DC Order Prescriptions: New oxycodone-acetaminophen 5-325 mg tablet 1 tab PO Q6H PRN (Reason: pain) Qty: 30 RF: 0 Continued bupropion HCl 150 mg tablet sustained-release 12 hr 150 mg PO DAILY Qty: 90 RF: 3 sertraline [Zoloft] 100 mg tablet 100 mg PO DAILY Qty: 90 RF: 3 ropinirole 0.5 mg tablet 0.5 mg PO .COMPLEX Qty: 90 RF: 3 mometasone-formoterol 200-5 mcg/actuation HFA aerosol inhaler 1 inh inhalation BID Qty: 26 RF: 3 fluticasone propionate 50 mcg/actuation spray,suspension 1 spray intranasal BID Qty: 18.2 RF: 5 albuterol sulfate 90 mcg/actuation HFA aerosol inhaler 1 - 2 puff inhalation UD PRN (Reason: SHORT OF BREATH) Qty: 1 RF: 0 albuterol sulfate 2.5 mg /3 mL (0.083 %) solution for nebulization 2.5 mg inhalation Q4H PRN (Reason: shortness of breath or wheezing) Qty: 1 RF: 0 tamsulosin 0.4 mg capsule 0.4 mg PO DAILY Qty: 90 RF: 0 omeprazole 20 mg capsule,delayed release(DR/EC) 20 mg PO QAM RF: 0 ibuprofen [Advil] 200 mg Tablet 400 mg PO Q6H PRN (Reason: Pain) RF: 0 Discharge Orders: Discharge Order (Routine); Ordered 11/18/21 Ordered By: Beau Renteria Admission Data Admit Date/Time: 11/17/21 09:28 Attending Provider: Beau Renteria Admit Provider: Beau Renteria Primary Care Provider: Lyn Adhikari Other Providers: [facility]
[2021-11-18] MEDS: FLUTICASONE PROPIONATE NA SPR 16 GM BTL NAE SCH (07:47)
[2021-11-18] MEDS: DOCUSATE SODIUM 100 MG CAP PO SCH (07:48)
[2021-11-18] MEDS ORDERED: dexAMETHasone 4 MG TAB PO SCH (08:00)
[2021-11-18] MEDS ORDERED: buPROPion SR 150 MG TABCR PO SCH (09:00)
[2021-11-18] MEDS ORDERED: PANTOprazole 40 MG TAB PO SCH (09:00)
[2021-11-18] MEDS ORDERED: SERTRALINE HCL 100 MG TABLET PO SCH (09:00)
[2021-11-18] MEDS ORDERED: TAMSULOSIN HCL 0.4 MG CAP PO SCH (09:00)
[2021-11-18] MEDS ORDERED: FLUTICASONE/VILANTEROL 100/25MCG 14 PUFFS/INHALER INH SCH (09:00)
[2021-11-18] MEDS ORDERED: MULTIVITAMIN TAB PO SCH (09:00)
== END 2021-11-18 11:00 | disposition home health service (06) ==
LOC: ASU 05:33 → 3E 05:33

== ENCOUNTER 2023-11-12 12:24 | Inpatient (IN) ==
[2023-11-12 13:02] LABS: Basophils # (auto) 0.03 K/uL (0.00-0.20); Basophils % (auto) 0.5 %; Eosinophils # (auto) 0.58 K/uL (0.00-0.50); Eosinophils % (auto) 10.2 %; Hematocrit (blood only) 47.8 % (42.0-52.0); Hemoglobin 15.4 g/dl (14.0-18.0); Immature Granulocytes # (auto) 0.02 K/uL (0.01-0.20); Immature Granulocytes % (auto) 0.4 %; Lymphocytes # (auto) 1.21 K/uL (1.20-3.40); Lymphocytes % (auto) 21.3 %; Mean Corpuscular Hemoglobin 28.5 pg (25.0-34.0); Mean Corpuscular Hgb Conc 32.2 g/dL (32.0-36.0); Mean Corpuscular Volume 88.5 fL (80.0-100.0); Mean Platelet Volume 9.2 fL (9.4-12.4); Monocytes # (auto) 0.48 K/uL (0.11-0.59); Monocytes % (auto) 8.5 %; Neutrophils # (auto) 3.35 K/uL (1.40-6.50); Neutrophils % (auto) 59.1 %; Platelet Count 305 K/uL (130-400); RDW Coefficient of Variation 13.3 % (11.5-14.5); RDW Standard Deviation 43.4 fL (36.4-46.3); White Blood Count 5.67 K/ul (4.8-10.8)
[2023-11-12 13:20] LABS: Albumin Globulin Ratio 0.9 (0.9-2); Albumin Level 3.8 gm/dl (3.4-5.0); BUN Creatinine Ratio 15.8 (10-20); Bilirubin,Total 0.7 mg/dl (0.2-1.0); Calcium 9.6 mg/dl (8.6-10.3); Creatinine Clr Calc Pharmacy 54.8 ml/min; Globulin 4.2 gm/dl (2.5-4.0); Potassium 4.2 mmol/L (3.5-5.1)
[2023-11-12] MEDS ORDERED: VANCOMYCIN CONSULT ACTIVE PRN (18:31)
--- NOTE | 2023-11-12 18:37 | Emergency Department Note ---
Impression & Plan Cellulitis and abscess of left leg ED Provider Note NAME: KVNG ROBLEDO AGE: 73 SEX: M : 1950 ARRIVES VIA: Walk-In INFORMANT: Patient, ED PROVIDER(S): Benita Velazquez MD CHIEF COMPLAINT: HPI: This is a 73-year-old male presenting for tick bite. Patient states that last Saturday he had a tick bite with another where the tick was Saturday remove the rest of the tick. Placed on doxycycline and Augmentin without improvement of symptoms. His rash has worsened with widening of the red margins and now it swollen and painful. He reports no fevers or chills. No drainage. ROS: See above HPI for pertinent positives & negatives. A total of 10 systems reviewed and were otherwise negative. PHYSICAL EXAMINATION: General: resting comfortably in no acute distress Head: Normocephalic and atraumatic Eyes: Normal inspection, extraocular muscles intact Ear, nose, throat: Normal external exam Neck: Normal range of motion Respiratory: lungs clear to auscultation bilaterally Cardiovascular: Regular rate/rhythm, no murmur GI: soft, nontender, no guarding or rebound Extremities: Large area of induration/swelling/erythema to the posterior thigh on the left leg, 4 inches x 4 inches Neuro: The patient awake and alert, appropriately conversive, no focal deficits, symmetric faces Skin: Warm, dry, and intact MEDICAL DECISION MAKING: This is a 73-year-old male presenting for tick bite. Patient has obvious cellulitis/abscess to the posterior thigh. Ultrasound does reveal cobblestoning with small area of abscess. Will do incision and drainage. Patient consented verbally for this after risk/benefits were expressed to him. Small amount about 5 cc of pus was drained with scant bleeding. Patient's cellulitis is fairly extensive however and tracking of the leg. Will require admission with IV antibiotics as he is already failed outpatient antibiotics. -Blood work reviewed showed no cytosis, anemia or other electrolyte disturbances. Patient's Lyme test is currently negative. Differential diagnosis: Cellulitis, abscess, Lyme disease ER treatment provided: See below Diagnostics interpreted by me: ECG: None Cardiac Monitoring: An order was placed for continuous cardiac monitoring. The monitor shows a rate of 74 with sinus rhythm. Laboratory studies: As stated above and show below. Imaging studies: See below. Past Med/Surg History Problem List (Updated 11/12/23 @ 21:36 by Benita Velazquez MD) Cellulitis and abscess of left leg (Acute) Cellulitis of left thigh Tick bite of left thigh with infection High blood pressure BPPV (benign paroxysmal positional vertigo) History of colon polyps Cervical spondylosis Status post reverse total replacement of left shoulder (~10/2021) Anxiety (Chronic) Depression (Chronic) High risk medication use Tubular adenoma of colon (Chronic) Restless legs syndrome (Chronic) Stable with med Obstructive sleep apnea (Chronic) CPAP Diverticulosis (Chronic) COPD, mild (Chronic) Breathing stable Asthma (Chronic) HAS NOT USED RESCUE INHALER FOR A WHILE Breathing stable Allergic rhinitis (Chronic) Medical History BPH (benign prostatic hyperplasia) Anxiety and depression Surgical History H/O shoulder surgery H/O colonoscopy with polypectomy History of tooth extraction History of cholecystectomy Family History Brother Prostate cancer Family hx of colon cancer Father Myocardial infarction Other No family history of adverse response to anesthesia Denies family history of Ovarian cancer Breast cancer Colorectal cancer Social History Smoking Status: Never smoker Tobacco Type: Smokeless Tobacco (Dip or Chew) Second Hand Exposure: No; Do You Dip or Chew Tobacco: Yes; Tobacco Cessation Education Requested by Patient: No Hx Alcohol Use: No Hx Substance Use: No Preferred Language: Cameroonian Communication Ability: Effective Visual Impairment: Limited Hearing Ability: Normal 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 Required: No Beliefs That Will Affect Care: None marital status: Current Living Situation: Spouse current occupational status: retired How many Children do You have: 2 Other Information That Helps Us Care for You: No Feels Safe at Home: Yes Safety Concerns: Feels Safe At This Time Childhood Exposure to Second-Hand Smoke: No Diet: regular caffeine: Yes during the past year weight has: remained stable Dental Care, Regularly: No Physical Activity Frequency: Daily Seatbelt Use: always Sunscreen Use: No Do you think of yourself as: straight/heterosexual Gender Identity: Male Assistive Devices: Denture - Upper, Denture - Lower and Glasses Allergies Allergies Allergy/AdvReac Type Severity Reaction Status Date / Time No Known Allergies Allergy Verified 11/12/23 17:56 Home Meds Home Medications Medication Instructions Recorded Confirmed albuterol sulfate 2.5 mg/3 mL 2.5 mg inhalation Q4H PRN 12/30/18 11/12/23 (0.083 %) solution for nebulization shortness of breath or wheezing #1 mL tamsulosin 0.4 mg capsule 0.4 mg PO QPM 03/16/22 11/12/23 albuterol sulfate 90 mcg/actuation 1 - 2 puff inhalation .Q4-6HR PRN 11/12/23 11/12/23 aerosol inhaler SHORT OF BREATH Previous Rx's Medication Instructions Recorded ropinirole 0.5 mg tablet 0.5 mg PO BID #180 tabs 12/17/22 bupropion HCl 150 mg tablet,12 hr 150 mg PO QAM #90 ea 12/31/22 sustained-release sertraline 100 mg tablet (Zoloft) 100 mg PO QAM #90 tabs 02/28/23 mometasone-formoterol HFA 200 1 inh inhalation BID #26 grams 06/10/23 mcg-5 mcg/actuation aerosol inhaler omeprazole 20 mg capsule,delayed 20 mg PO QAM #90 caps 10/01/23 release amoxicillin 875 mg-potassium 1 tab PO BID #14 tabs 11/07/23 clavulanate 125 mg tablet doxycycline monohydrate 100 mg 100 mg PO BID #28 caps 11/07/23 capsule Results & Data (ED) Vital Signs Vital Signs - 24 hr 11/12/23 12:26 11/12/23 14:08 11/12/23 18:50 Temperature 36.6 C Temperature Source Temporal Artery Scan Pulse Rate 87 Pulse Rate [Finger] 76 75 Pulse Rhythm Regular Pulse Strength Normal Pulse Strength [Finger] Normal Respiratory Rate 18 14 18 Respiratory Effort / Characteristics Non-Labored Spontaneous Non-Labored Spontaneous Respiratory Depth Normal Normal Respiratory Pattern Regular Regular Blood Pressure 166/91 H Blood Pressure [Right Arm] 131/90 135/93 Blood Pressure Mean 116 Blood Pressure Mean [Right Arm] 103 107 Blood Pressure Position Sitting Pulse Oximetry 94 93 93 Oxygen Delivery Method Room Air Room Air Room Air Sepsis Recent Fever Within 48 Hours No Sepsis New/Unexplained Change in Mental Status No Sepsis Action Taken by Nursing No Action Required Laboratory Data 11/12/23 12:39 11/12/23 12:39 Lab Results 11/12/23 Range/Units 12:39 WBC 5.67 (4.8-10.8) K/ul RBC 5.40 (4.70-6.10) M/uL Hgb 15.4 (14.0-18.0) g/dl Hct 47.8 (42.0-52.0) % MCV 88.5 (80.0-100.0) fL MCH 28.5 (25.0-34.0) pg MCHC 32.2 (32.0-36.0) g/dL RDW Std Deviation 43.4 (36.4-46.3) fL RDW Coeff of Andrea 13.3 (11.5-14.5) % Plt Count 305 (130-400) K/uL MPV 9.2 L (9.4-12.4) fL Immature Gran % (Auto) 0.4 % Neut % (Auto) 59.1 % Lymph % (Auto) 21.3 % Dane % (Auto) 8.5 % Eos % (Auto) 10.2 % Baso % (Auto) 0.5 % Neut # (Auto) 3.35 (1.40-6.50) K/uL Lymph # (Auto) 1.21 (1.20-3.40) K/uL Dane # (Auto) 0.48 (0.11-0.59) K/uL Eos # (Auto) 0.58 H (0.00-0.50) K/uL Baso # (Auto) 0.03 (0.00-0.20) K/uL Immature Gran # (Auto) 0.02 (0.01-0.20) K/uL ESR > 130 H (0-20) mm/hr Sodium 141 (136-145) mmol/L Potassium 4.2 (3.5-5.1) mmol/L Chloride 104 (98-107) mmol/L Carbon Dioxide 28 (21-32) mmol/L Anion Gap 9 (3-11) BUN 18 (6-23) mg/dl Creatinine 1.14 (0.6-1.4) mg/dl Est Cr Clr Drug Dosing 54.8 ml/min Est GFR ( Amer) 73.0 ml/min Est GFR (Non-Af Amer) 63.0 ml/min BUN/Creatinine Ratio 15.8 (10-20) Glucose 99 (70-99(Fasting)) mg/dl Calcium 9.6 (8.6-10.3) mg/dl Total Bilirubin 0.7 (0.2-1.0) mg/dl AST 15 (13-39) U/L ALT 12 (7-52) U/L Alkaline Phosphatase 101 (34-104) U/L Total Protein 8.0 (6.0-8.3) gm/dl Albumin 3.8 (3.4-5.0) gm/dl Globulin 4.2 H (2.5-4.0) gm/dl Albumin/Globulin Ratio 0.9 (0.9-2) Lyme Disease Screen Negative (Negative) Administered Medications Discontinued Medications Vancomycin HCl 2,000 mg/ (Sodium Chloride) 540 mls @ 200 mls/hr IV NOW ONE Stop: 11/12/23 21:12 Last Admin: 11/12/23 19:05 Dose: 200 mls/hr Documented By: PAM Ceftriaxone Sodium (Rocephin) 2,000 mg in 50 mls @ 100 mls/hr IV NOW STA Stop: 11/12/23 20:10 Last Infusion: 11/12/23 21:05 Dose: Infused Documented By: Admin: 11/12/23 20:33 Dose: 100 mls/hr Documented By: CHESTER Lidocaine HCl (Lidocaine 1% Local 20 Ml Vial) Confirm Administered Dose 8 ml .ROUTE .STK-MED ONE Stop: 11/12/23 17:01 Last Admin: 11/12/23 18:48 Dose: Not Given Documented By: PAM Lidocaine/Epinephrine (Lidocaine 1%/Epinephrine 1:100,000 50 Ml Vial) 5 ml INFIL NOW ONE Stop: 11/12/23 18:37 Last Admin: 11/12/23 18:48 Dose: 5 ml Documented By: PAM Discharge Plan Visit Data Chief Complaint: Illness Stated Complaint: TICK BITE, ANTIBIOTICS NOT HELPING ED Provider: Benita Velazquez Discharge Problem: Cellulitis and abscess of left leg Patient Disposition: Admitted As Inpatient Discharge Instructions Interventions: ED Discharge Assessment Last Done: 11/12/23 20:41
[2023-11-12] MEDS: LIDOCAINE 1%/EPINEPHRINE 1:100,000 50 ML VIAL INFIL ONE (18:48)
[2023-11-12] MEDS: LIDOCAINE 1% LOCAL 20 ML VIAL ONE (18:48)
--- NOTE | 2023-11-12 19:04 | History & Physical Report ---
Date of Service November 12, 2023 Assessment & Plan (1) Cellulitis of left thigh: Plan: Deep tick bite on left posterior thigh Saturday 11/04; patient was not able to remove the full tick Patient started on Augmentin and doxycycline outpatient on Tuesday 11/07 Despite this, patient developed worsening erythema, swelling, and leg pain; failure of outpatient treatment I&D performed in the ED and patient given Vancomycin No leukocytosis; afebrile ESR and CRP ordered, pending Daptomycin 4mg/kg q24h Rocephin 2000 mg IV q24h Wound culture obtained, pending Daily wound care Acetaminophen as needed for fever/pain A.m. CBC, BMP, CRP, mag (2) Tick bite of left thigh with infection: Plan: Lyme Negative (3) Obstructive sleep apnea: Plan: Patient reports good compliance with taking his CPAP at night, however declines it at time of admission Can add on CPAP HS or bring in home CPAP as needed (4) BPPV (benign paroxysmal positional vertigo): (5) Anxiety: (6) Depression: Plan Disposition: Obs - Admit to [facility] DNR/DNI Regular diet VTE PPx: Lovenox 40 mg SQ q24h History of Present Illness Chief Complaint: Tick bite, left posterior thigh injury Primary Care Provider: FELICE Marr is a pleasant 73-year-old male with PMH of recent tick bite on left thigh, anxiety, depression, BPPV, CHRISTOPHER, restless leg syndrome, COPD, and asthma. He initially had a tick bite on his left posterior thigh on Saturday 11/04. His tried to to get the tick but it was very deep, and she can only get out part of it. He was seen by his PCP on Saturday and placed on Augmentin and doxycycline outpatient. Since then the tick bite has gotten worse, and he now endorses left posterior thigh swelling, erythema, headaches, and leg pain on 11/11. Of note, the pain is an achy pain that is in both of his legs. Patient does have a history of tick bites in the past, but denies any history of Lyme disease. He reports he has been taking antibiotics consistently, but did not take any of his regular medications today. No recent change in medications. Patient denies history of smoking, tobacco use, recent alcohol use. Patient's vitals are stable to admission. ED course: Left thigh I&D Vancomycin 2000 mg IV ROS: Patient endorses chills, body aches (especially in the legs), LOMELI, bilateral leg pain, and restless leg syndrome. Patient denies fever, night-sweats, dizziness, lightheadedness, chest pain, chest pressure, chest palpitations, SOB, abdominal pain, N/V/D, or numbness/tingling in the legs. Allergies Allergy/AdvReac Type Severity Reaction Status Date / Time No Known Allergies Allergy Verified 11/12/23 17:56 Home Medications Medication Instructions Recorded Confirmed Type albuterol sulfate 2.5 mg/3 mL 2.5 mg inhalation Q4H PRN 12/30/18 11/12/23 History (0.083 %) solution for nebulization shortness of breath or wheezing #1 mL tamsulosin 0.4 mg capsule 0.4 mg PO QPM 03/16/22 11/12/23 History ropinirole 0.5 mg tablet 0.5 mg PO BID #180 tabs 12/17/22 11/12/23 Rx bupropion HCl 150 mg tablet,12 hr 150 mg PO QAM #90 ea 12/31/22 11/12/23 Rx sustained-release sertraline 100 mg tablet (Zoloft) 100 mg PO QAM #90 tabs 02/28/23 11/12/23 Rx mometasone-formoterol HFA 200 1 inh inhalation BID #26 grams 06/10/23 11/12/23 Rx mcg-5 mcg/actuation aerosol inhaler omeprazole 20 mg capsule,delayed 20 mg PO QAM #90 caps 10/01/23 11/12/23 Rx release amoxicillin 875 mg-potassium 1 tab PO BID #14 tabs 11/07/23 11/12/23 Rx clavulanate 125 mg tablet doxycycline monohydrate 100 mg 100 mg PO BID #28 caps 11/07/23 11/12/23 Rx capsule albuterol sulfate 90 mcg/actuation 1 - 2 puff inhalation .Q4-6HR PRN 11/12/23 11/12/23 History aerosol inhaler SHORT OF BREATH Past Med/Surg History Problem List (Updated 11/12/23 @ 19:41 by Austen Travis PA-C) Cellulitis of left thigh Tick bite of left thigh with infection High blood pressure BPPV (benign paroxysmal positional vertigo) History of colon polyps Cervical spondylosis Status post reverse total replacement of left shoulder (~10/2021) Anxiety (Chronic) Depression (Chronic) High risk medication use Tubular adenoma of colon (Chronic) Restless legs syndrome (Chronic) Stable with med Obstructive sleep apnea (Chronic) CPAP Diverticulosis (Chronic) COPD, mild (Chronic) Breathing stable Asthma (Chronic) HAS NOT USED RESCUE INHALER FOR A WHILE Breathing stable Allergic rhinitis (Chronic) Medical History BPH (benign prostatic hyperplasia) Anxiety and depression Surgical History H/O shoulder surgery H/O colonoscopy with polypectomy History of tooth extraction History of cholecystectomy Family History Brother Prostate cancer Family hx of colon cancer Father Myocardial infarction Other No family history of adverse response to anesthesia Denies family history of Ovarian cancer Breast cancer Colorectal cancer Social History Smoking Status: Never smoker Second Hand Exposure: No; Do You Dip or Chew Tobacco: No; Hx Alcohol Use: No Hx Substance Use: No Preferred Language: Yakut Communication Ability: Effective Visual Impairment: Limited Hearing Ability: Normal Surgery Scheduling Coordinator Required: No Beliefs That Will Affect Care: None marital status: Current Living Situation: Spouse and Family current occupational status: retired How many Children do You have: 2 Feels Safe at Home: Yes Childhood Exposure to Second-Hand Smoke: No Diet: regular caffeine: Yes during the past year weight has: remained stable Dental Care, Regularly: No Physical Activity Frequency: Daily Seatbelt Use: always Sunscreen Use: No Do you think of yourself as: straight/heterosexual Gender Identity: Male Assistive Devices: CPAP, Denture - Upper, Denture - Lower and Glasses Review of Systems 2 Review of Systems: See HPI above Physical Exam 2 Physical Exam: General: no acute distress; pleasant affect; non-toxic appearing; well- nourished; cooperative; SpO2 93% on RA HEENT: normocephalic, atraumatic; no scleral icterus; PERRLA w/ EOMs intact; moist mucus membrane; vision and hearing grossly intact Neck: supple; no lymphadenopathy; trachea midline Skin: warm, dry without signs of tenting; no cyanosis; no rashes, bruising, lesions, or erythema noted CV: chest wall NTP; RRR; S1/S2 normal; no murmurs/rubs/gallops; pulses intact and symmetric at radial, DP, and PT Lungs: no acute respiratory distress; symmetrical chest wall expansion; clear breath sounds across all lung tony w/o adventitious sounds; no wheezing ABD: Soft, NTP; BS present; no rebound/guarding; no distention; no rashes on the abdomen or flanks MSK: no tics or fasciculations; no edema noted in the LEs b/l, nonerythematous Left thigh: Erythematous and swollen posterior thigh, with blood draining from I&D site (see photos below) Neuro: A&Ox3; normal mood and affect; fluent speech; no focal deficits; sensation grossly intact in the LEs b/l Results & Data Results & Data Vital Signs (Past 12 Hours) Vital Signs Temp Pulse Pulse Resp BP BP Pulse Ox 11/12/23 18:50 75 18 135/93 93 11/12/23 14:08 76 14 131/90 93 11/12/23 12:26 36.6 C 87 18 166/91 H 94 O2 Del Method 11/12/23 18:50 Room Air 11/12/23 14:08 Room Air 11/12/23 12:26 Room Air Laboratory Results Abnormal lab results 11/12/23 Range/Units 12:39 MPV 9.2 L (9.4-12.4) fL Eos # (Auto) 0.58 H (0.00-0.50) K/uL Globulin 4.2 H (2.5-4.0) gm/dl Code Status & VTE Plan Code Status DNR/DNI VTE Prophylaxis Plan VTE Prophylaxis will be ordered: Yes Supervising Physician Co-Signing Physician Notes Patient seen and examined, chart reviewed, case discussed with Austen Travis and I agree with the assessment and plan as above except as otherwise noted Labs and images reviewed 73-year-old male with a past history of BPPV, depression, anxiety, CHRISTOPHER, COPD, asthma who was previously seen for tick bite of left thigh with suspected surrounding cellulitis and who was discharged on Augmentin/doxycycline however has had progressive leg pain, swelling, and erythema. This had a incision and drainage with a small amount of material expressed while in the ER. Patient was recommended for inpatient treatment of worsening cellulitis despite outpatient oral antibiotics with MRSA coverage pending culture results. No signs of neurovascular compromise. No leukocytosis on admission. No evidence of sepsis or endorgan ischemia. Lyme screen was negative. Given small amount ofdischargeagree with treating with dapto, and will continue antibiotics with Rocephin for gn coverage while inpatient. Culture collected and sent at time of assessment. His Lyme screen is negative, reasonable to discontinue doxycycline at this point. Agree with assessment and management above PG Care Time/CCT Total # of Minutes Spent Total Time Spent with Patient: Total time spent is greater than 50% in coordination of care (as documented) at patient's floor/unit and/or counseling patient: [place] [address] INT INP/OBS CARE 2/55MIN Patient Type New History Comprehensive Exam Comprehensive Medical Decision Making Moderate Complexity Diagnoses Cellulitis of left thigh L03.116 Tick bite of left thigh with infection S70.362A; L08.9; W57.XXXA Obstructive sleep apnea G47.33 BPPV (benign paroxysmal positional vertigo) H81.10 Anxiety F41.9 Persistent depressive disorder F34.1 Depression Type: persistent depressive disorder (6) Depression Depression Type: persistent depressive disorder Qualified Code(s): F34.1 - Dysthymic disorder
[2023-11-12] MEDS: VANCOMYCIN HCL 2,000 MG in SODIUM CHLORIDE 0.9% 500 ML IV ONE (19:05)
[2023-11-12] MEDS: cefTRIAXone SODIUM 2,000 MG/50 ML BAG IV STA (20:33)
[2023-11-12] MEDS ORDERED: MELATONIN 3 MG TAB PO PRN (21:04)
[2023-11-12] MEDS ORDERED: ALBUTEROL HFA 8 GM INHALER INH PRN (21:04)
[2023-11-12] MEDS ORDERED: ALBUTEROL 0.083% NEBU SOLN 3 ML VIAL INH PRN (21:04)
[2023-11-12] MEDS ORDERED: ACETAMINOPHEN 325 MG TAB PO PRN (21:04)
[2023-11-12] MEDS: TAMSULOSIN HCL 0.4 MG CAP PO SCH (21:52)
[2023-11-12] MEDS: FLUTICASONE/VILANTEROL 200/25MCG 14 PUFFS/INHALER INH SCH (21:52)
[2023-11-12] MEDS: rOPINIRole HCL 0.25 MG TABLET PO SCH (21:53)
[2023-11-12 22:44] LABS: C Reactive Protein 3.11 mg/dl (0-0.5)
[2023-11-13 06:15] LABS: Basophils # (auto) 0.06 K/uL (0.00-0.20); Basophils % (auto) 0.9 %; Eosinophils # (auto) 0.58 K/uL (0.00-0.50); Eosinophils % (auto) 8.9 %; Hematocrit (blood only) 41.9 % (42.0-52.0); Hemoglobin 13.6 g/dl (14.0-18.0); Immature Granulocytes # (auto) 0.03 K/uL (0.01-0.20); Immature Granulocytes % (auto) 0.5 %; Lymphocytes # (auto) 1.75 K/uL (1.20-3.40); Lymphocytes % (auto) 26.8 %; Mean Corpuscular Hemoglobin 28.8 pg (25.0-34.0); Mean Corpuscular Hgb Conc 32.5 g/dL (32.0-36.0); Mean Corpuscular Volume 88.6 fL (80.0-100.0); Mean Platelet Volume 9.4 fL (9.4-12.4); Monocytes # (auto) 0.89 K/uL (0.11-0.59); Monocytes % (auto) 13.6 %; Neutrophils # (auto) 3.23 K/uL (1.40-6.50); Neutrophils % (auto) 49.3 %; Platelet Count 290 K/uL (130-400); RDW Coefficient of Variation 13.2 % (11.5-14.5); RDW Standard Deviation 42.8 fL (36.4-46.3); Red Blood Count 4.73 M/uL (4.70-6.10); White Blood Count 6.54 K/ul (4.8-10.8)
[2023-11-13 06:30] LABS: BUN Creatinine Ratio 15.7 (10-20); C Reactive Protein 2.04 mg/dl (0-0.5); Est GFR (Non-African American) 67.3 ml/min; Magnesium 2.1 mg/dl (1.7-2.4); Potassium 4.1 mmol/L (3.5-5.1)
[2023-11-13] MEDS: ENOXAPARIN INJ 40 MG/0.4 ML SYR SQ SCH (08:15)
[2023-11-13] MEDS: PANTOprazole 40 MG TAB PO SCH (08:15)
[2023-11-13] MEDS: buPROPion SR 150 MG TABCR PO SCH (08:15)
[2023-11-13] MEDS: SERTRALINE HCL 100 MG TABLET PO SCH (08:17)
[2023-11-13] MEDS: DAPTOmycin 275 MG in SYRINGE 0 ML IV SCH (08:23)
--- NOTE | 2023-11-13 14:21 | Hospitalist Progress Note ---
Date of Service November 13, 2023 Assessment & Plan (1) Cellulitis of left thigh: Plan: Deep tick bite on left posterior thigh Saturday 11/04; patient was not able to remove the full tick resulting in his digging deeper with tweezers - worsening erythema swelling and pain despite Augmentin and doxycycline therapy (started 11/07) I&D performed in the ED and patient given Vancomycin - ESR greater than 130, CRP now downtrending - continue daptomycin and Rocephin (first day 11/11) Wound culture pending Daily wound care A.m. CBC, BMP, esr (2) Tick bite of left thigh with infection: Plan: Lyme Negative - patient denies ever having the appearance of a bull's-eye rash (3) Obstructive sleep apnea: Plan: Patient reports good compliance with taking his CPAP at night, however declines it at time of admission Can add on CPAP HS or bring in home CPAP as needed Plan Stable medical conditions: Depressioncontinue Wellbutrin and Sertaline Restless legs - conitnue ropinirole, patient only takes this at night BPH - continue flomax Disposition: continued inpatient stay for further IV abx VTE PPx: Lovenox 40 mg SQ q24h Admission and Anticipated Discharge Date Admission Date: November 12, 2023 Supervising Physician Co-Signing Physician Notes Attending Attestation - Chart reviewed, care plan d/w BRENDAN Ramirez. I agree w/ the samson components of her documentation. Edvin Jackman MD Subjective patient seen resting in bed. He denies current pain to the leg area, states this is much improved from admission. Denies any fevers or chills at home. Reports good appetite Review of Systems 2 Review of Systems: All systems reviewed & are unremarkable except as noted in Subjective Physical Exam 2 Physical Exam: General: NAD, VS as above Resp: normal respiratory effort, lungs clear to auscultation CV: RRR, no murmur, Abd: normal bowel sounds, non tender, no hepatosplenomegaly Extremities: Moves all extremities, no edema Neuro: A&O x3, Skin: warm to the touch near lesion, pictured below. small area of firm pocket Results & Data Results & Data Vital Signs (Past 12 Hours) Vital Signs Temp Pulse Resp BP Pulse Ox O2 Del Method 11/13/23 07:40 36.6 C 65 16 139/85 94 Room Air Laboratory Results CBC and chemistry reviewed, CRP reviewed PG Care Time/CCT Total # of Minutes Spent Total Time Spent with Patient: Total time spent is greater than 50% in coordination of care (as documented) at patient's floor/unit and/or counseling patient: Coding Level of Care Code 07840 SUB INP/OBS CARE 2/35MIN Diagnoses Cellulitis of left thigh L03.116 Tick bite of left thigh with infection S70.362A; L08.9; W57.XXXA Obstructive sleep apnea G47.33
[2023-11-13] MEDS: rOPINIRole HCL 0.25 MG TABLET PO SCH (20:30)
[2023-11-13] MEDS: FLUTICASONE/VILANTEROL 200/25MCG 14 PUFFS/INHALER INH SCH (20:30)
[2023-11-13] MEDS: cefTRIAXone SODIUM 2,000 MG/50 ML BAG IV SCH (20:36)
[2023-11-14 07:28] LABS: Basophils # (auto) 0.06 K/uL (0.00-0.20); Basophils % (auto) 0.9 %; Eosinophils # (auto) 0.63 K/uL (0.00-0.50); Eosinophils % (auto) 9.1 %; Hemoglobin 14.2 g/dl (14.0-18.0); Immature Granulocytes # (auto) 0.04 K/uL (0.01-0.20); Immature Granulocytes % (auto) 0.6 %; Lymphocytes # (auto) 1.66 K/uL (1.20-3.40); Mean Corpuscular Hemoglobin 28.5 pg (25.0-34.0); Mean Corpuscular Hgb Conc 32.3 g/dL (32.0-36.0); Mean Corpuscular Volume 88.2 fL (80.0-100.0); Mean Platelet Volume 9.3 fL (9.4-12.4); Monocytes # (auto) 0.93 K/uL (0.11-0.59); Monocytes % (auto) 13.5 %; Neutrophils # (auto) 3.59 K/uL (1.40-6.50); Neutrophils % (auto) 51.9 %; Platelet Count 306 K/uL (130-400); RDW Coefficient of Variation 13.2 % (11.5-14.5); RDW Standard Deviation 42.8 fL (36.4-46.3); Red Blood Count 4.99 M/uL (4.70-6.10); White Blood Count 6.91 K/ul (4.8-10.8)
[2023-11-14 07:54] LABS: BUN Creatinine Ratio 13.5 (10-20); C Reactive Protein 1.5 mg/dl (0-0.5); Calcium 9.3 mg/dl (8.6-10.3); Creatinine Clr Calc Pharmacy 50.6 ml/min; Est GFR (African American) 64.7 ml/min; Est GFR (Non-African American) 55.8 ml/min
--- NOTE | 2023-11-14 13:43 | Surgery Consultation ---
Date of Consultation November 14, 2023 Assessment & Plan (1) Cellulitis and abscess of left leg: (2) Tick bite of left thigh with infection: Plan 73-year-old gentleman with tick bite leading to cellulitis and abscess. The abscess was drained in the emergency department. On exam, there does not appear to be any further pockets at least superficially. There is a significant amount of induration. I recommend CT scan of the leg to evaluate for any further undrained pockets of abscess. We will continue to follow. Continue IV antibiotics. History of Present Illness Reason for Consultation: left leg cellulitis possible abscess Requesting Physician: Edvin Jackman MD Attending Physician: Edvin Jackman MD History of Present Illness 73-year-old gentleman presents after tick bite. He was on outpatient antibiotics but the redness and pain was increasing. He was admitted and started IV antibiotics. He had a limited I&D done of the site in the emergency department where 5 cc of pus were removed. He continues to have redness and induration at the site. We are consulted for possible reincision and drainage. No imaging has been done. Allergies Allergy/AdvReac Type Severity Reaction Status Date / Time No Known Allergies Allergy Verified 11/12/23 17:56 Home Medications Medication Instructions Recorded Confirmed Type albuterol sulfate 2.5 mg/3 mL 2.5 mg inhalation Q4H PRN 12/30/18 11/12/23 History (0.083 %) solution for nebulization shortness of breath or wheezing #1 mL tamsulosin 0.4 mg capsule 0.4 mg PO QPM 03/16/22 11/12/23 History ropinirole 0.5 mg tablet 0.5 mg PO BID #180 tabs 12/17/22 11/12/23 Rx bupropion HCl 150 mg tablet,12 hr 150 mg PO QAM #90 ea 12/31/22 11/12/23 Rx sustained-release sertraline 100 mg tablet (Zoloft) 100 mg PO QAM #90 tabs 02/28/23 11/12/23 Rx mometasone-formoterol HFA 200 1 inh inhalation BID #26 grams 06/10/23 11/12/23 Rx mcg-5 mcg/actuation aerosol inhaler omeprazole 20 mg capsule,delayed 20 mg PO QAM #90 caps 10/01/23 11/12/23 Rx release amoxicillin 875 mg-potassium 1 tab PO BID #14 tabs 11/07/23 11/12/23 Rx clavulanate 125 mg tablet doxycycline monohydrate 100 mg 100 mg PO BID #28 caps 11/07/23 11/12/23 Rx capsule albuterol sulfate 90 mcg/actuation 1 - 2 puff inhalation .Q4-6HR PRN 11/12/23 11/12/23 History aerosol inhaler SHORT OF BREATH Patient History Medical History BPH (benign prostatic hyperplasia) Anxiety and depression Surgical History H/O shoulder surgery LEFT H/O colonoscopy with polypectomy History of tooth extraction History of cholecystectomy Family History Brother Prostate cancer Family hx of colon cancer Father Myocardial infarction Other No family history of adverse response to anesthesia Denies family history of Ovarian cancer Breast cancer Colorectal cancer Social History Smoking Status: Never smoker Tobacco Type: Smokeless Tobacco (Dip or Chew) Second Hand Exposure: No; Do You Dip or Chew Tobacco: Yes; Tobacco Cessation Education Requested by Patient: No Hx Alcohol Use: No Hx Substance Use: No Preferred Language: Salvadorean Communication Ability: Effective Visual Impairment: Limited Hearing Ability: Normal Clinical Informatics Spec Required: No Beliefs That Will Affect Care: None marital status: Current Living Situation: Spouse current occupational status: retired How many Children do You have: 2 Other Information That Helps Us Care for You: No Feels Safe at Home: Yes Safety Concerns: Feels Safe At This Time Childhood Exposure to Second-Hand Smoke: No Diet: regular caffeine: Yes during the past year weight has: remained stable Dental Care, Regularly: No Physical Activity Frequency: Daily Seatbelt Use: always Sunscreen Use: No Do you think of yourself as: straight/heterosexual Gender Identity: Male Assistive Devices: CPAP Review of Systems Review of Systems: All systems reviewed & are unremarkable except as noted in HPI & below Physical Exam Constitutional: WD/WN, vitals as above Eyes: PERRL, conjunctivae normal, anicteric sclerae ENMT: external ear and nose normal, oropharynx normal Neck: trachea midline, no thyromegaly Respiratory: normal respiratory effort; no respiratory distress and no labored breathing Cardiovascular: Rate/Rhythm: regular rate and regular rhythm Gastrointestinal (Abdomen): Inspection/Auscultation: abdomen normal to inspection; abdomen not distended Percussion/Palpation: abdomen soft; abdomen nontender Skin: no rashes, warm and dry Left lateral/posterior thigh with 6 x 6 cm area of erythema and induration, central opening of prior I&D site. I was able to probe the cavity. There does not appear to be any further pockets of purulence however there is a significant amount of induration. Psychiatric: A+Ox3, euthymic affect Results & Data Vital Signs (Past 12 Hours) Vital Signs Temp Pulse Resp BP Pulse Ox O2 Del Method 11/14/23 07:14 36.5 C 76 16 110/66 94 Room Air Laboratory Results 11/14/23 Range/Units 06:44 WBC 6.91 (4.8-10.8) K/ul RBC 4.99 (4.70-6.10) M/uL Hgb 14.2 (14.0-18.0) g/dl Hct 44.0 (42.0-52.0) % MCV 88.2 (80.0-100.0) fL MCH 28.5 (25.0-34.0) pg MCHC 32.3 (32.0-36.0) g/dL RDW Std Deviation 42.8 (36.4-46.3) fL RDW Coeff of Andrea 13.2 (11.5-14.5) % Plt Count 306 (130-400) K/uL MPV 9.3 L (9.4-12.4) fL Immature Gran % (Auto) 0.6 % Neut % (Auto) 51.9 % Lymph % (Auto) 24.0 % [place] % (Auto) 13.5 % Eos % (Auto) 9.1 % Baso % (Auto) 0.9 % Neut # (Auto) 3.59 (1.40-6.50) K/uL Lymph # (Auto) 1.66 (1.20-3.40) K/uL [place] # (Auto) 0.93 H (0.11-0.59) K/uL Eos # (Auto) 0.63 H (0.00-0.50) K/uL Baso # (Auto) 0.06 (0.00-0.20) K/uL Immature Gran # (Auto) 0.04 (0.01-0.20) K/uL ESR 100 H (0-20) mm/hr Sodium 140 (136-145) mmol/L Potassium 4.0 (3.5-5.1) mmol/L Chloride 104 (98-107) mmol/L Carbon Dioxide 29 (21-32) mmol/L Anion Gap 7 (3-11) BUN 17 (6-23) mg/dl Creatinine 1.26 (0.6-1.4) mg/dl Est Cr Clr Drug Dosing 50.6 ml/min Est GFR ( Amer) 64.7 ml/min Est GFR (Non-Af Amer) 55.8 ml/min BUN/Creatinine Ratio 13.5 (10-20) Glucose 89 (70-99(Fasting)) mg/dl Calcium 9.3 (8.6-10.3) mg/dl C-Reactive Protein 1.50 H (0-0.5) mg/dl
--- NOTE | 2023-11-14 14:46 | Hospitalist Progress Note ---
Date of Service November 14, 2023 Assessment & Plan (1) Cellulitis of left thigh: Plan: Deep tick bite on left posterior thigh Saturday 11/04; patient was not able to remove the full tick resulting in his digging deeper with tweezers - worsening erythema swelling and pain despite Augmentin and doxycycline therapy (started 11/07) I&D performed in the ED and patient given Vancomycin - ESR and CRP now downtrending - continue daptomycin and Rocephin (first day 11/11) Wound culture: staph species, sensitivities pending Consulted surgery as worsening wound, possible need for repeat I&D - CT scan ordered A.m. CBC, BMP, (2) Tick bite of left thigh with infection: Plan: Lyme Negative - patient denies ever having the appearance of a bull's-eye rash (3) Obstructive sleep apnea: Plan: Patient reports good compliance with taking his CPAP at night, however declines it at time of admission Can add on CPAP HS or bring in home CPAP as needed Plan Stable medical conditions: Depressioncontinue Wellbutrin and Sertaline Restless legs - conitnue ropinirole, patient only takes this at night BPH - continue flomax Disposition: continued inpatient stay for further IV abx and surgery eval VTE PPx: Lovenox 40 mg SQ q24h Admission and Anticipated Discharge Date Admission Date: November 12, 2023 Supervising Physician Co-Signing Physician Notes Attending Attestation - Chart reviewed, care plan d/w BRENDAN Ramirez. I agree w/ the samson components of her documentation. Edvin Jackman MD Subjective Denied pain in area, no fevers or chills. no acute complaints Review of Systems Review of Systems: All systems reviewed & are unremarkable except as noted in Subjective Physical Exam Physical Exam: General: NAD, VS as above Resp: normal respiratory effort, lungs clear to auscultation CV: RRR, no murmur, Abd: normal bowel sounds, non tender, no hepatosplenomegaly Extremities: Moves all extremities, no edema Neuro: A&O x3, Skin: warmth improving, erythema stable. However induration has worsened Results & Data Results & Data Vital Signs (Past 12 Hours) Vital Signs Temp Pulse Resp BP Pulse Ox O2 Del Method 11/14/23 07:14 36.5 C 76 16 110/66 94 Room Air Laboratory Results CBC, chemistry, ESR, crp, wound culture reviewed PG Care Time/CCT Total # of Minutes Spent Total Time Spent with Patient: Total time spent is greater than 50% in coordination of care (as documented) at patient's floor/unit and/or counseling patient: Coding Level of Care Code 77508 SUB INP/OBS CARE 2/35MIN Diagnoses Cellulitis of left thigh L03.116 Tick bite of left thigh with infection S70.362A; L08.9; W57.XXXA Obstructive sleep apnea G47.33
[2023-11-14] MEDS: OPTIRAY 320 100ml IV ONE (15:19)
--- NOTE | 2023-11-14 16:38 | CT Scan Report ---
CT SCAN OF THE LEFT FEMUR WITH IV CONTRAST CLINICAL HISTORY: Cellulitis. Infection. COMPARISON STUDY: No priors. TECHNIQUE: Following the IV administration of 79 cc of Optiray 320, CT scan of the left femur was per formed from the bony pelvis to the knee. Images are reviewed in the axial, sagittal, and coronal plan es. IV contrast was administered without complication. A dose lowering technique was utilized adherin g to the principles of ALARA. Note that interpretation is suboptimal without plain film correlate. CT DOSE: 779.42 mGy.cm FINDINGS: The skeletal structures are osteopenic. There is no evidence of left femoral fracture. The visualized left hemipelvis appears intact. There is no evidence of avascular necrosis of the left fem oral head. Mild arthritic change is seen in the left hip. Moderate to severe arthritic change is note d in the partially imaged right hip. The left knee joint is grossly preserved noting degenerative kassie nge and calcified joint bodies. There is a small left knee joint effusion. There is no bony erosion o r periostitis seen in the left femur. The regional musculature is normal in appearance. There is mild induration of the posterior soft tissues in the mid thigh seen on image #214. No fluid collection is seen to indicate abscess. No soft tissue gas is seen in the left thigh. The left femoral artery is w idely patent. There is no left pelvic sidewall or inguinal lymphadenopathy. The prostate gland is enl arged and heterogeneous. The bladder wall is thickened/trabeculated indicating chronic outlet obstruc tion. Small bladder calculi are suggested. There is diverticulosis of the partially imaged sigmoid co syl. Bilateral hydroceles are noted. IMPRESSION: 1. No acute bony abnormality is identified involving the left femur. 2. There is mild soft tissue induration seen posteriorly in the mid thigh. 3. No fluid collection is seen to suggest abscess and there is no soft tissue gas. 4. Additional findings as above. ACT 112: Negative or not required by law. Dictated: 11/14/2023 3:43 PM Transcribed: 11/14/2023 4:06 PM Samantha [id number] MARY_[place] [id number] Electronically signed by: Meng Arvizu M.D. 11/14/2023 4:37 PM
[2023-11-14 17:19] LABS: Appearance Urine Clear (Clear); Bilirubin Urine Negative (Negative); Blood Urine Negative (Negative); Color Urine Yellow; Glucose Urine UA Negative (Negative); Ketones Urine Negative (Negative); Leukocyte Esterase Urine Negative (Negative); Nitrite Urine Negative (Negative); Protein Urine Negative (Negative); Specific Gravity Urine > 1.045 (1.000-1.030); Urobilinogen Urine Negative (Negative); pH Urine 5.5 (4.5-7.5)
--- NOTE | 2023-11-15 09:28 | Discharge Summary ---
Discharge Summary Date of Service November 15, 2023 Notes For Next Care Provider Admitted with cellulitis with abscess - failing outpatient antibiotics. I&D performed in the ER - received IV dapto and ceftriaxone. CT showed no abscess - evaluated by general surgery. Improving with IV antibiotics - discharged with PO doxycycline. Lyme screen was negative. Did pass sediment in urine after CT scan. CT showed bladder calculi - patient asymptomatic Medication Changes From Visit Doxy BID x14 days Admission HPI Per Admitting Provider Rl is a pleasant 73-year-old male with PMH of recent tick bite on left thigh, anxiety, depression, BPPV, CHRISTOPHER, restless leg syndrome, COPD, and asthma. He initially had a tick bite on his left posterior thigh on Saturday 11/04. His tried to to get the tick but it was very deep, and she can only get out part of it. He was seen by his PCP on Saturday and placed on Augmentin and doxycycline outpatient. Since then the tick bite has gotten worse, and he now endorses left posterior thigh swelling, erythema, headaches, and leg pain on 11/11. Of note, the pain is an achy pain that is in both of his legs. Patient does have a history of tick bites in the past, but denies any history of Lyme disease. He reports he has been taking antibiotics consistently, but did not take any of his regular medications today. No recent change in medications. Patient denies history of smoking, tobacco use, recent alcohol use. Patient's vitals are stable to admission. ED course: Left thigh I&D Vancomycin 2000 mg IV ROS: Patient endorses chills, body aches (especially in the legs), LOMELI, bilateral leg pain, and restless leg syndrome. Patient denies fever, night-sweats, dizziness, lightheadedness, chest pain, chest pressure, chest palpitations, SOB, abdominal pain, N/V/D, or numbness/tingling in the legs. Principal Dx & Hospital Course #1 = Principal Diagnosis (1) Cellulitis of left thigh: Deep tick bite on left posterior thigh Saturday 11/04; patient was not able to remove the full tick resulting in his digging deeper with tweezers - worsening erythema swelling and pain despite Augmentin and doxycycline therapy (started 11/07) I&D performed in the ED and patient given Vancomycin - ESR and CRP now downtrending - Received daptomycin and Rocephin (first day 11/11) --> discharged with 14-day course of doxycycline -Wound culture: MSSA staph species Consulted surgery as worsening wound, possible need for repeat I&D - CT scan ordered - no abscess, no surgical management indicated discharged home today, wound care instructions given. PCP follow-up next week (2) Bladder calculi: incidental finding on CT - patient did pass a black sediment after CT scan - asymptomatic - may need follow up if becomes bothersom (3) Tick bite of left thigh with infection: Lyme Negative - patient denies ever having the appearance of a bull's-eye rash (4) Obstructive sleep apnea: continue home CPAP Plan Stable medical conditions: Depressioncontinue Wellbutrin and Sertaline Restless legs - conitnue ropinirole, patient only takes this at night BPH - continue flomax Disposition: discharge to home today, close PCP follow up Discharge Exam General: NAD, VS as above Resp: normal respiratory effort, lungs clear to auscultation CV: RRR, no murmur, Abd: normal bowel sounds, non tender, no hepatosplenomegaly Extremities: Moves all extremities, no edema Neuro: A&O x3, Skin: no warmth, erythema and induration improving Updated Medication List Medication Instructions Recorded Confirmed Type albuterol sulfate 2.5 mg/3 mL 2.5 mg inhalation Q4H PRN 12/30/18 11/12/23 History (0.083 %) solution for nebulization shortness of breath or wheezing #1 mL tamsulosin 0.4 mg capsule 0.4 mg PO QPM 03/16/22 11/12/23 History ropinirole 0.5 mg tablet 0.5 mg PO BID #180 tabs 12/17/22 11/12/23 Rx bupropion HCl 150 mg tablet,12 hr 150 mg PO QAM #90 ea 12/31/22 11/12/23 Rx sustained-release sertraline 100 mg tablet (Zoloft) 100 mg PO QAM #90 tabs 02/28/23 11/12/23 Rx mometasone-formoterol HFA 200 1 inh inhalation BID #26 grams 06/10/23 11/12/23 Rx mcg-5 mcg/actuation aerosol inhaler omeprazole 20 mg capsule,delayed 20 mg PO QAM #90 caps 10/01/23 11/12/23 Rx release albuterol sulfate 90 mcg/actuation 1 - 2 puff inhalation .Q4-6HR PRN 11/12/23 11/12/23 History aerosol inhaler SHORT OF BREATH doxycycline hyclate 100 mg capsule 100 mg PO BID 14 days #28 caps 11/15/23 Rx Hospital Stay Data Consultations 11/12/23 19:27 ED Decision to Admit Stat 11/14/23 10:43 Consult General Surgery Routine Diagnostic Imagining Performed Femur CT 11/14/23 13:34 CT SCAN OF THE LEFT FEMUR WITH IV CONTRAST CLINICAL HISTORY: Cellulitis. Infection. COMPARISON STUDY: No priors. TECHNIQUE: Following the IV administration of 79 cc of Optiray 320, CT scan of the left femur was performed from the bony pelvis to the knee. Images are reviewed in the axial, sagittal, and coronal planes. IV contrast was administered without complication. A dose lowering technique was utilized adhering to the principles of ALARA. Note that interpretation is suboptimal without plain film correlate. CT DOSE: 779.42 mGy.cm FINDINGS: The skeletal structures are osteopenic. There is no evidence of left femoral fracture. The visualized left hemipelvis appears intact. There is no evidence of avascular necrosis of the left femoral head. Mild arthritic change is seen in the left hip. Moderate to severe arthritic change is noted in the partially imaged right hip. The left knee joint is grossly preserved noting degenerative change and calcified joint bodies. There is a small left knee joint effusion. There is no bony erosion or periostitis seen in the left femur. The regional musculature is normal in appearance. There is mild induration of the posterior soft tissues in the mid thigh seen on image #214. No fluid collection is seen to indicate abscess. No soft tissue gas is seen in the left thigh. The left femoral artery is widely patent. There is no left pelvic sidewall or inguinal lymphadenopathy. The prostate gland is enlarged and heterogeneous. The bladder wall is thickened/trabeculated indicating chronic outlet obstruction. Small bladder calculi are suggested. There is diverticulosis of the partially imaged sigmoid colon. Bilateral hydroceles are noted. IMPRESSION: 1. No acute bony abnormality is identified involving the left femur. 2. There is mild soft tissue induration seen posteriorly in the mid thigh. 3. No fluid collection is seen to suggest abscess and there is no soft tissue gas. 4. Additional findings as above. ACT 112: Negative or not required by law. Dictated: 11/14/2023 3:43 PM Transcribed: 11/14/2023 4:06 PM Samantha [id number] MARYLamine [id number] Electronically signed by: Meng Arvizu M.D. 11/14/2023 4:37 PM Pending Results Patient Have Any Pending Studies at Discharge: No Discharge Instructions Given to Patient (Per Discharging Provider) Carlito Huang were hospitalized after having cellulitis worsening on outpatient treatment. The area improved with an I&D in the ER and IV antibiotics. You were evaluated by the surgery team and had a CT scan performed that did not show any abscess and did not require further incision. You will be treated with doxycycline. Take this twice a day - starting 11/15. Take this with food. This can also cause sun sensitivity, if you have to be outside make sure that you are wearing sunscreen and reapplying. You should keep the area clean and dry - wash with soap (unscented) and water and cover with large band-aid. Please do not go digging for any ticks or other foreign objects at home. if you notice worsening redness or fevers please contact your PCP. You had an episode of sediment in your urine - that was likely a stone. The CT scan did show some small stones in your bladder. If you start having any flank plain or pain with urination, discuss with your PCP regarding workup for kidney stones/possible urology follow. Please follow up with your PCP within 7 days. Medications: Take your medications as instructed; do not skip a dose of your medicines. Make sure all of your doctors know every medicine you are taking (including [id number] medicines, vitamins, and supplements). Call your primary care provider before taking any new medicines (including over- the-counter medicines, vitamins, and supplements), because some of these may interact with your current medications, or may make your symptoms worse. Tell your primary care provider if you cannot afford your medications. Activity: You can do normal everyday activities as your body allows. Take rest breaks if you feel tired. Do not overexert. Stop activity if you have pain, shortness of breath or feel dizzy. Follow-up appointments: Make an appointment with your primary care physician within one week of discharge. A copy of this summary will be sent to them. Every time you see your primary care physician, or any other doctor, bring your medication list, and a list of questions. CONTACT YOUR PRIMARY CARE PROVIDER if you experience any of the following: Shortness of breath or difficulty breathing Fevers or chills Feeling tired with normal activity or experiencing dizziness or fainting Difficulty following your treatment plan, or difficulty taking medications CALL 911 OR GO TO THE EMERGENCY DEPARTMENT if you experience any of the following: Severe abdominal pain or nausea/vomiting Severe chest pain, or chest pain that radiates (moves) to your jaw or arm Sudden, severe shortness of breath or difficulty breathing Thank you for allowing us to participate in your care. Total Time Total Time Spent Total Time Spent (In Minutes): Time spend day of discharge 34 minutes including direct patient care, medication reconciliation, documentation, review of labs and images, and coordination of care. Coding Level of Care Code 06589 INP/OBS DISCH >30 MIN Diagnoses Cellulitis of left thigh L03.116 Bladder calculi N21.0 Tick bite of left thigh with infection S70.362A; L08.9; W57.XXXA Obstructive sleep apnea G47.33
== END 2023-11-15 11:20 | disposition home or self-care (01) | DRG 603 ==
LOC: ED 12:24 → 3N 12:24 → SUATTDRO 19:35 → 3N 20:41
DX: G47.33 Obstructive sleep apnea (adult) (pediatric); G25.81 Restless legs syndrome; F32.A Depression, unspecified; L03.116 Cellulitis of left lower limb; N21.0 Calculus in bladder; S70.362A Insect bite (nonvenomous), left thigh, initial encounter; N40.0 Benign prostatic hyperplasia without lower urinary tract symptoms; L08.9 Local infection of the skin and subcutaneous tissue, unspecified; Z79.899 Other long term (current) drug therapy; W57.XXXA Bitten or stung by nonvenomous insect and other nonvenomous arthropods, initial encounter